=== PATIENT | female | born 1935 | race Caucasian/White ===

== ENCOUNTER 2017-04-05 09:35 | Observation (INO) | payer MEDICARE, OTHER ==
--- NOTE | 2017-04-05 11:23 | RAD ---
HISTORY: Shortness of breath, cough COMPARISONS: April 29, 2007 VIEWS: 4: Frontal dual-energy and lateral views of the chest. FINDINGS: CARDIOMEDIASTINAL SILHOUETTE: The cardiac silhouette is mildly enlarged. The cardiomediastinal silhouette is otherwise normal. HARPER: The harper are normal. PLEURA: The costophrenic angles are sharp. No pleural abnormalities are noted. LUNG PARENCHYMA: There is patchy alveolar opacification lung bases bilaterally. ABDOMEN: The upper abdomen is clear. There is no subphrenic gas. BONES AND SOFT TISSUES: No bone or soft tissue abnormalities are noted. OTHER: None. IMPRESSION: PATCHY BIBASILAR ATELECTASIS VERSUS EARLY CONSOLIDATION
[2017-04-05 11:31] LABS: Hematocrit 39 % (35-47); Hemoglobin 13.7 g/dl (12.0-16.0); Mean Corpuscular HGB Conc 35 g/dl (31-36); Mean Corpuscular Hemoglobin 33 pg (27-31); Mean Corpuscular Volume 94 fL (80-97); Mean Platelet Volume 8 um3 (7.4-10.4); Red Blood Count 4.19 10^6/ul (4.0-5.4); Red Cell Distribution Width 14 % (10.5-15); White Blood Count 6.1 10^3/ul (3.5-10.8)
[2017-04-05 11:43] LABS: Troponin I 0.01 ng/mL (<0.04)
[2017-04-05 11:45] LABS: Albumin 4.6 g/dL (3.2-5.2); BUN/Creatinine Ratio 14.6 (8-20); EGFR African American 85.6 (>60); EGFR Non-African American 66.6 (>60); Total Bilirubin 0.8 mg/dL (0.2-1.0); Total Protein 6.6 g/dL (6.4-8.9)
[2017-04-05] MEDS ORDERED: Furosemide IV* 10 MG/ML VIAL (40 MG) IV ONE (12:16)
[2017-04-05] MEDS ORDERED: Carvedilol TAB* 3.125 MG PO SCH (14:13)
[2017-04-05] MEDS ORDERED: Ondansetron INJ* 2 MG/ML VIAL IV PRN (14:18)
[2017-04-05] MEDS ORDERED: Acetaminophen TAB* 325 MG PO PRN (14:18)
[2017-04-05 14:34] LABS: C Reactive Protein 2.65 mg/L (< 5.00); Magnesium 2.1 mg/dL (1.9-2.7)
[2017-04-05 15:07] LABS: TSH (Thyroid Stimulating Horm) 3.91 mcIU/mL (0.34-5.60)
[2017-04-05] MEDS ORDERED: Perflutren Lipid Microsphere* 3 ML VIAL ONE (16:32)
--- NOTE | 2017-04-05 17:13 | HP ---
CC: Alvaro Marks MD * HISTORY AND PHYSICAL: DATE OF ADMISSION: 04/05/17 ATTENDING PHYSICIAN: Hitesh Matute MD * (as dictated by Rylee Gomez NP) . PRIMARY CARE PROVIDER: Alvaro Marks MD. PRIMARY INVESTIGATIONS DIRECTOR: Dr. Alba. CHIEF COMPLAINT: "Haven't been able to sleep x3 days." HISTORY OF PRESENT ILLNESS: Ms. Yin is an 81-year-old female with past medical history significant for cardiomyopathy of unknown etiology, anxiety disorder, hypothyroidism and paroxysmal SVT, who presented to the ER today with concern for inability to sleep for the past 3 nights. She states that when she lies down, she feels like she cannot breathe. She has difficulty propping herself up at night because of her chronic neck and back pain. She notes that she has been more short of breath since last week. She still takes daily walks , but notes that she fatigues more easily. She also reports some chest tightness as well as palpitations and a few near syncopal events. She denies any recent fever, chills, cold or flu symptoms, although she does note she has a nonproductive cough. She also reports that she has noted some bilateral flank pain recently, but denies this now. Here in the ED, the patient received IV furosemide and reports that her breathing feels better. She is speaking in full sentences. She is able to lie flat in the ED stretcher and appears to be more comfortable. PAST MEDICAL HISTORY: Includes: 1. Cardiomyopathy of unknown etiology with the last echo in 2014 showing an EF of 30% to 35%. 2. Anxiety disorder. 3. History of left breast cancer. 4. Hypothyroidism. 5. Paroxysmal SVT. 6. Osteoarthritis. 7. Tricuspid valve disorder. 8. Mitral valve disorder. PAST SURGICAL HISTORY: Includes left breast mastectomy, bilateral total knee replacements, tonsillectomies, numerous basal cell skin cancers status post removal, wisdom teeth removal, cataract removal, treatment of deviated septum with a treatment for vulvar dysplasia and back surgery. HOME MEDICATIONS: 1. Levothyroxine 75 mcg daily. 2. Estradiol 10 mcg vaginally twice a week. 3. Citalopram 20 mg daily. 4. Aspirin 81 mg daily. ALLERGIES: Include CODEINE, PENICILLIN, and SULFA drugs. FAMILY HISTORY: Includes a history of skin cancer, but she denies any known cardiac history in her family. SOCIAL HISTORY: She denies any tobacco, alcohol or illicit drug use. She lives by herself. Her daughter, , is her healthcare proxy. REVIEW OF SYSTEMS: As per HPI, all those not mentioned are negative. PHYSICAL EXAMINATION GENERAL: This is a well-developed 81-year-old female who is lying in ED stretcher in no acute distress. VITAL SIGNS: Temperature 98.0, heart rate 112, respiratory rate 20, blood pressure 132/86, and O2 saturation is 94% on 3 L nasal cannula. HEENT: Head is atraumatic, normocephalic. Face is symmetrical. Pupils are equal, round, and reactive to light. Extraocular movements are intact. Oral mucosa appears moist. There is no oropharyngeal exudate or erythema. NECK: Supple. No JVD noted. No lymphadenopathy appreciated. LUNGS: Clear to auscultation, though there are mild crackles noted in the bases bilaterally. CARDIAC: S1 and S2 heart sounds. Rate is tachycardic. Could not appreciate any murmurs. ABDOMEN: Soft, nontender, and nondistended. Bowel sounds present times all 4 quadrants. There is no CVA tenderness. EXTREMITIES: The patient has pretibial pitting edema that is 1+ to the bilateral lower extremities. Distal pulses are symmetric and equal. MUSCULOSKELETAL: No clubbing or cyanosis noted. The patient has full range of motion in the extremities. NEURO: She is alert and oriented x4. Cranial nerves II through XII are grossly intact. Strength is 5/5 in the upper and lower extremities. No focal deficits noted. Sensation is intact to light touch. PSYCH: The patient's affect is appropriate. Again, she is alert and oriented x4. SKIN: The patient has noted areas to the bilateral lower extremities where basal skin cancer removals have occurred. They are healing with no surrounding erythema or drainage, otherwise skin is warm and dry. DIAGNOSTIC STUDIES/LAB DATA: CBC: WBC 6.1, hemoglobin 13.7, hematocrit 39, platelet count 182,000. CMP: Sodium 130, potassium 4.0, chloride 99, carbon dioxide 21, BUN 12, creatinine 0.82, glucose 75, lactic acid 1.5, calcium 10. AST 41, ALT 59, alk phos 54, troponin 0.01, BNP is 1719, albumin 4.6. TSH pending. The patient's chest x-ray shows concern for vascular congestion and is read as patchy bibasilar atelectasis versus early consolidation. Her EKG shows sinus rhythm with poor R-wave progression. Old medical records were reviewed. ASSESSMENT AND PLAN: This is an 81-year-old female who presents today with concern for exacerbation of congestive heart failure. She will be admitted under observation status to the telemetry floor. Plan is as follows: 1. Congestive heart failure with known cardiomyopathy. At this point in time, the patient appears to be improved following the IV furosemide that she has received. We will obtain echocardiogram and will contact Cardiology to notify Dr. Alba of the patient' admission. From the patient's interview, she states that she was previously on 3 different medications in the past for her cardiomyopathy, but did not tolerate them at home secondary to low blood pressure. I did find a few notes in [facility] that indicate the patient was previously on lisinopril, which she states she definitely did not tolerate, as well as Aldactone and carvedilol. Given the patient's tachycardia as well as her suspected heart failure, I will like to start her on back on carvedilol and will start her on 3.125 mg b.i.d. to see how she tolerates this. I do not note that her blood pressures here are normotensive, but somewhat on the soft side here in the ER, so we will watch this very closely. She did receive one dose of IV furosemide with good effect and I will hold off on further IV diuresis today at this time given that the patient has good renal function. At baseline , she states her weight is around 150 pounds and here in the ER it is noted to be 146 pounds. 2. Hyponatremia. The patient's sodium is 130, which I suspect is secondary to fluid overload. We will repeat a BMP tomorrow. 3. History of anxiety disorder. Continue home citalopram. 4. History of hypothyroidism. TSH is pending, but we will continue home levothyroxine at current dose at this time. 5. History of paroxysmal supraventricular tachycardia, currently not an issue. We will be starting the patient on a low dose beta cinthia. 6. FEN. The patient will be ordered a low sodium diet. 7. DVT prophylaxis. She is ordered subcu heparin and SCDs. 8. Code status. The patient looks to be a DNR and trial intubation and MOLST form was completed with the patient. 9. For her bilateral flank pain, plan to check a urinalysis. TIME SPENT: Time spent on this admission was approximately 60 minutes, more than half the time was spent [id number] with the patient obtaining history and physical, performing physical examination, reviewing the plan of care. Plan of care was also reviewed with my attending, Dr. Matute, who is in agreement. RYLEE GOMEZ, LICENSED NURSE PRACTITIONER [id number]/CPS #: [id number] BRENNAN
--- NOTE | 2017-04-05 17:54 | ECHO ---
Patient: RENA GUY Rec#: [id number] : 1935 Date: 04/05/2017 Age: 81y Height: 172.7 cm / 68.0 in Weight: 66.2 kg / 145.9 lbs Sex: F BSA: 1.79 Room#: 434 Admit Date#: 04/05/2017 Type: Inpatient Referring: Cris Bernla Reading: Dimitrios Melendez MD Conflict Resolution Professional: Lydia Juarez RN RDCS CC: Silvano Alba MD CC: Alvaro Marks MD Transthoracic Echocardiogram Indication: CHF, cardiomyopathy, SOB BP: 115/99 HR: 122 Rhythm: Tachycardia Findings History: Cardiomyopathy, CHF, mitral regurgitation, left breast cancer, hypothyroidism Technical Comments: The study quality is fair. Completed at 1720. Left Ventricle: The left ventricular chamber size is mildly dilated. There is global hypokinesis of the left ventricle with minor regional variation. There is severely decreased left ventricular systolic function. The estimated ejection fraction is 20-25%. In some of the views at appears less than 20%. The assessment of diastolic function is non-diagnostic. The patient was unable to perform a Valsalva maneuver. Left Atrium: The left atrium is mild to moderately dilated. Right Ventricle: The right ventricular cavity size is normal. The right ventricular global systolic function is mildly reduced. Right Atrium: The right atrial cavity size is normal. Aortic Valve: The aortic valve is trileaflet. The aortic valve leaflets are mildly thickened. There is a trace of aortic regurgitation. There is no evidence of aortic stenosis. Mitral Valve: The mitral valve leaflets are mildly thickened. There is moderate to severe mitral regurgitation. Probably severe. There is no evidence of mitral stenosis. Pulmonary vein flow reversal is present. Tricuspid Valve: The tricuspid valve leaflets are normal. There is moderate tricuspid regurgitation. There is evidence of moderate pulmonary hypertension. There is no tricuspid stenosis. Pulmonic Valve: The pulmonic valve appears normal. There is mild pulmonic regurgitation. There is no pulmonic stenosis. Pericardium: A trivial pericardial effusion is visualized. A pericardial fat pad is visualized. A left pleural effusion is present. Aorta: There is no dilatation of the ascending aorta. There is no dilatation of the aortic arch. There is no dilation of the aortic root. Pulmonary Artery: The main pulmonary artery appears normal. Venous: The inferior vena cava appears normal in size. There is an approximate 50% respiratory change in the inferior vena cava dimension. Contrast: Definity was used to optimize study. A total of 3 ml of Definity was given IV to enhance visualization of the endocardial border and the apex. Summary: There are changes noted when compared to the previous study done on 08/17/2014, LV EF appears less now from 30-35% then. MR is more severe now instead of mild-moderate then.TR is now moderate instead of mild then. PHTN is new now. Conclusions The left ventricular chamber size is mildly dilated. There is global hypokinesis of the left ventricle with minor regional variation. There is severely decreased left ventricular systolic function. The estimated ejection fraction is 20-25%. In some of the views at appears less than 20%. The assessment of diastolic function is non-diagnostic. The left atrium is mild to moderately dilated. There is a trace of aortic regurgitation. There is moderate to severe mitral regurgitation. Probably severe. There is moderate tricuspid regurgitation. There is evidence of moderate pulmonary hypertension. There is mild pulmonic regurgitation. A trivial pericardial effusion is visualized. There are changes noted when compared to the previous study done on 08/17/2014, LV EF appears less now from 30-35% then. MR is more severe now instead of mild-moderate then.TR is now moderate instead of mild then. PHTN is new now. Measurements Name Value Normal Range RVIDd (AP) 2D 2.7 cm (0.9 - 2.6) RVDdMajor (2D) 3.4 cm (2.2 - 4.4) RAd ISD 4CH 4.7 cm (3.4 - 4.9) RA (A4C)W 4.1 cm (2.9 - 4.6) IVSd (2D) 0.7 cm (0.6 - 1) LVPWd (2D) 0.8 cm (0.6 - 1) LVIDd (2D) 6 cm (3.6 - 5.4) LVIDs (2D) 5.4 cm - LV FS (2D) 10 % (25 - 45) Aortic Annulus 1.7 cm (1.4 - 2.6) Ao root diameter (2D) 2.7 cm (2.1 - 3.5) Ascending Ao 2.9 cm (2.1 - 3.4) Aortic arch 2.7 cm (1.8 - 3.4) LA dimension (AP) 2D 4.9 cm (2.3 - 3.8) LAd ISD 4CH 5.9 cm (2.9 - 5.3) LA ISD 4CH W 4.5 cm (2.5 - 4.5) Name Value Normal Range LA ESV SP 4CH (A/L) 59 ml - LA ESV SP 2CH (A/L) 76 ml - LA ESV BP (A/L) 68 ml - LA ESV BP (A/L) index 38 ml/m2 - LA ESV SP 4CH (MOD) 57 ml - LA ESV SP 2CH (MOD) 74 ml - Name Value Normal Range MV E-wave Vmax 1.3 m/sec - MV deceleration time 155 msec - MV A-wave Vmax 0.81 m/sec - MV E:A ratio 1.6 ratio - LV septal e' Vmax 0.06 m/sec - LV lateral e' Vmax 0.05 m/sec - LV E:e' septal ratio 21.7 ratio - LV E:e' lateral ratio 26 ratio - Name Value Normal Range AV Vmax 1.1 m/sec - AV VTI 16 cm - AV peak gradient 5 mmHg - AV mean gradient 3 mmHg - LVOT Vmax 0.75 m/sec - LVOT VTI 9.8 cm - LVOT peak gradient 2.3 mmHg - LVOT mean gradient 1.3 mmHg - Name Value Normal Range MV Vmax 1.6 m/sec - MV VTI 22 cm - MV peak gradient 10.24 mmHg - MV mean gradient 4 mmHg - MV PHT 47 msec - MR Vmax 5.3 m/sec - MR VTI 137.7 cm - MR volume (PISA) 34.4 ml - MR flow (PISA) 132.3 ml/sec - MR ERO 0.25 cm2 - MR PISA radius 0.7 cm - MR alias Vmax 43 cm/sec - MVA (PHT) 4.7 cm2 - Name Value Normal Range TR Vmax 3.2 m/sec - TR peak gradient 41 mmHg - RAP 8 mmHg - RVSP 49 mmHg - IVC diameter 1.7 cm - Name Value Normal Range PV Vmax 0.49 m/sec -
--- NOTE | 2017-04-05 19:10 | ED ---
Azeb Freeman SooYoung, scribed for Ze Hughes MD on 04/05/17 at 1015 . Shortness of Breath - HPI Summary HPI Summary: An 81 y/o F presents to ED with c/o SOB at baseline but has been worsening this AM, occurring with minimal exertion and when lying down. Pert PMHx: CHF. Associated sx: mild cough. Denies pedal edema, fever, chills. She wasn't able to sleep last night. She takes daily aspirin. Non-smoker. No ETOH. Not taking a water pill, not taking medication for CHF. PCP is Dr. Marks. Sees Dr. Alba, cardio. - History of Current Complaint Chief Complaint: EDGeneral Time Seen by Provider: 04/05/17 10:06 Hx Obtained From: Patient, Family/[employer]ak[employer] Worker [employer] Line Onset/Duration: Lasting Hours, Still Present Timing: Constant Current Severity: Mild Dyspnea At: Exertion - minimal Aggrevating Factors: Recumbent Position - Allergy/Home Medications Allergies/Adverse Reactions: Allergies Allergy/AdvReac Type Severity Reaction Status Date / Time Codeine Allergy Rash Verified 04/05/17 10:04 Penicillins Allergy Rash Verified 04/05/17 10:04 Sulfa Drugs Allergy Rash Uncoded 04/05/17 10:04 PMH/Surg Hx/FS Hx/Imm Hx Previously Healthy: No Endocrine/Hematology History: Reports: Hx Thyroid Disease - ON MEDS Denies: Hx Diabetes Cardiovascular History: Reports: Hx Congestive Heart Failure, Hx Valvular Heart Disease - MITRAL VALVE, Other Cardiovascular Problems/Disorders - HX HEART FAILURE Denies: Hx Hypertension Respiratory History: Denies: Hx Asthma, Hx Chronic Obstructive Pulmonary Disease (COPD), Other Respiratory Problems/Disorders GI History: Denies: Hx Ulcer, Other GI Disorders Musculoskeletal History: Denies: Other Musculoskeletal History Sensory History: Reports: Hx Cataracts - JACK, Hx Contacts or Glasses - GLASSES Denies: Hx Hearing Aid Opthamlomology History: Reports: Hx Cataracts - JACK, Hx Contacts or Glasses - GLASSES Neurological History: Denies: Other Neuro Impairments/Disorders Psychiatric History: Reports: Hx Anxiety - ON MEDS - Cancer History Cancer Type, Location and Year: skin cancer, breast cancer - Surgical History Surgery Procedure, Year, and Place: tonsillectomy, tumor removed from breast benign,AGE 18 nose deviated septum, back surgery for ruptured disc bilateral knee replacements, L mastectomy 2008, laser surgery on labia. Hx Anesthesia Reactions: No Infectious Disease History: No Infectious Disease History: Denies: Hx Hepatitis, Hx Human Immunodeficiency Virus (HIV), History Other Infectious Disease, Traveled Outside the [place] in Last 30 Days - Family History Known Family History: Negative: Other - neg: anaesthesia reaction - Social History Occupation: Retired Lives: Alone Alcohol Use: None Hx Substance Use: No Substance Use Type: Reports: None Hx Tobacco Use: No Smoking Status (MU): Never Smoked Tobacco Review of Systems Negative: Fever, Chills Positive: Shortness Of Breath, Cough Positive: dysuria Negative: Edema - LE All Other Systems Reviewed And Are Negative: Yes Physical Exam - Summary Physical Exam Summary: The patient is well-nourished in no acute distress and in no acute pain. The skin is warm and dry and skin color reflects adequate perfusion. HEENT: The head is normocephalic and atraumatic. The pupils are equal and reactive. The conjunctivae are clear and without drainage. Nares are patent and without drainage. Mouth reveals dry oral mucous membranes and the throat is without erythema and exudate. The external ears are intact. The ear canals are patent and without drainage. The tympanic membranes are intact. Neck is supple with full range of motion and non-tender. There are no carotid bruits. There is no neck vein distension. Respiratory: Chest is non-tender. Lungs are clear to auscultation and breath sounds are symmetrical and equal. Mildly diminished breath sounds, no rales, rhonchi or wheezing. Cardiovascular: Heart is regular rhythm and tachy. There is no murmur or rub auscultated. There is pitting edema in LE. Distal pulses are symmetrical and equal. Abdomen: The abdomen is soft and non-tender. There are normal bowel sounds heard in all four quadrants and there is no organomegaly palpated. Musculoskeletal: There is no back pain noted. Extremities are non-tender with full range of motion. There is good capillary refill. There is pitting edema in LE. No calf tenderness elicited. Neurological: Patient is alert and oriented to person, place and time. The patient has symmetrical motor strength in all four extremities. Cranial nerves are grossly intact. Deep tendon reflexes are symmetrical and equal in all four extremities. Psychiatric: The patient has an appropriate affect and does not exhibit any anxiety or depression. Vital Signs On Initial Exam: Initial Vitals Temp Pulse Resp BP Pulse Ox 98.0 F 48 18 126/93 100 04/05/17 09:39 04/05/17 09:39 04/05/17 09:39 04/05/17 09:39 04/05/17 09:39 - Jena Coma Scale Coma Scale Total: 15 Diagnostics - Vital Signs Vital Signs Temp Pulse Resp BP Pulse Ox 04/05/17 10:02 98 F 92 16 118/82 95 04/05/17 09:39 98.0 F 48 18 126/93 100 - Laboratory Lab Results: Lab Results 04/05/17 04/05/17 04/05/17 Range/Units 11:06 11:06 11:06 WBC 6.1 (3.5-10.8) 10^3/ul RBC 4.19 (4.0-5.4) 10^6/ul Hgb 13.7 (12.0-16.0) g/dl Hct 39 (35-47) % MCV 94 (80-97) fL MCH 33 H (27-31) pg MCHC 35 (31-36) g/dl RDW 14 (10.5-15) % Plt Count 182 (150-450) 10^3/ul MPV 8 (7.4-10.4) um3 Neut % (Auto) 77.7 (38-83) % Lymph % (Auto) 13.4 L (25-47) % Foard % (Auto) 7.0 (1-9) % Eos % (Auto) 1.1 (0-6) % Baso % (Auto) 0.8 (0-2) % Absolute Neuts (auto) 4.8 (1.5-7.7) 10^3/ul Absolute Lymphs (auto) 0.8 L (1.0-4.8) 10^3/ul Absolute Monos (auto) 0.4 (0-0.8) 10^3/ul Absolute Eos (auto) 0.1 (0-0.6) 10^3/ul Absolute Basos (auto) 0 (0-0.2) 10^3/ul Absolute Nucleated RBC 0.01 10^3/ul Nucleated RBC % 0.1 INR (Anticoag Therapy) 0.99 (0.89-1.11) Sodium (133-145) mmol/L Potassium (3.5-5.0) mmol/L Chloride (101-111) mmol/L Carbon Dioxide (22-32) mmol/L Anion Gap (2-11) mmol/L BUN (6-24) mg/dL Creatinine (0.51-0.95) mg/dL Est GFR ( Amer) (>60) Est GFR (Non-Af Amer) (>60) BUN/Creatinine Ratio (8-20) Glucose (70-100) mg/dL Lactic Acid (0.5-2.0) mmol/L Calcium (8.6-10.3) mg/dL Magnesium (1.9-2.7) mg/dL Total Bilirubin (0.2-1.0) mg/dL AST (13-39) U/L ALT (7-52) U/L Alkaline Phosphatase (34-104) U/L Troponin I (<0.04) ng/mL C-Reactive Protein (< 5.00) mg/L B-Natriuretic Peptide 1719 H ( - 100) pg/mL Total Protein (6.4-8.9) g/dL Albumin (3.2-5.2) g/dL Globulin (2-4) g/dL Albumin/Globulin Ratio (1-3) TSH (0.34-5.60) mcIU/mL 04/05/17 04/05/17 Range/Units 11:06 11:06 WBC (3.5-10.8) 10^3/ul RBC (4.0-5.4) 10^6/ul Hgb (12.0-16.0) g/dl Hct (35-47) % MCV (80-97) fL MCH (27-31) pg MCHC (31-36) g/dl RDW (10.5-15) % Plt Count (150-450) 10^3/ul MPV (7.4-10.4) um3 Neut % (Auto) (38-83) % Lymph % (Auto) (25-47) % Foard % (Auto) (1-9) % Eos % (Auto) (0-6) % Baso % (Auto) (0-2) % Absolute Neuts (auto) (1.5-7.7) 10^3/ul Absolute Lymphs (auto) (1.0-4.8) 10^3/ul Absolute Monos (auto) (0-0.8) 10^3/ul Absolute Eos (auto) (0-0.6) 10^3/ul Absolute Basos (auto) (0-0.2) 10^3/ul Absolute Nucleated RBC 10^3/ul Nucleated RBC % INR (Anticoag Therapy) (0.89-1.11) Sodium 130 L (133-145) mmol/L Potassium 4.0 (3.5-5.0) mmol/L Chloride 99 L (101-111) mmol/L Carbon Dioxide 21 L (22-32) mmol/L Anion Gap 10 (2-11) mmol/L BUN 12 (6-24) mg/dL Creatinine 0.82 (0.51-0.95) mg/dL Est GFR ( Amer) 85.6 (>60) Est GFR (Non-Af Amer) 66.6 (>60) BUN/Creatinine Ratio 14.6 (8-20) Glucose 95 (70-100) mg/dL Lactic Acid 1.5 (0.5-2.0) mmol/L Calcium 10.0 (8.6-10.3) mg/dL Magnesium 2.1 (1.9-2.7) mg/dL Total Bilirubin 0.80 (0.2-1.0) mg/dL AST 41 H (13-39) U/L ALT 59 H (7-52) U/L Alkaline Phosphatase 54 (34-104) U/L Troponin I 0.01 (<0.04) ng/mL C-Reactive Protein 2.65 (< 5.00) mg/L B-Natriuretic Peptide ( - 100) pg/mL Total Protein 6.6 (6.4-8.9) g/dL Albumin 4.6 (3.2-5.2) g/dL Globulin 2.0 (2-4) g/dL Albumin/Globulin Ratio 2.3 (1-3) TSH 3.91 (0.34-5.60) mcIU/mL Result Diagrams: 04/05/17 11:06 04/05/17 11:06 Lab Statement: Any lab studies that have been ordered have been reviewed, and results considered in the medical decision making process. - Radiology CXR Xray Interpretation: Positive (See Comments) - IMPRESSION: PATCHY BIBASILAR ATELECTASIS VERSUS EARLY CONSOLIDATION. ED physician has reviewed this radiology report and agrees. Radiology Interpretation Completed By: Radiologist - EKG 0947 Cardiac Rate: NL - 92bpm EKG Rhythm: Sinus Rhythm ST Segment: Non-Specific EKG Interpretation: nml axis, poor R-wave progression, probable LVH Re-Evaluation - Re-Evaluation 1 Re-Evaluation Time: 12:12 Change: Unchanged Comment: Discussing results with pt and family. They prefer not to be admitted, would like to be given a diuretic and D/C home with water pills. Agreeable to plan. Course/Dx - Course Course Of Treatment: An 81 y/o F presents to ED with c/o SOB at baseline but has been worsening this AM, occurring with minimal exertion and when lying down. Pert PMHx: CHF. Associated sx: mild cough. Denies pedal edema, fever, chills. She wasn't able to sleep last night. She takes daily aspirin. Non- smoker. No ETOH. Not taking a water pill, not taking medication for CHF. PCP is Dr. Marks. Sees Dr. Alba, cardio. Bloodwork is without significant abnormality except BNP 1719. EKG shows NSR with poor R-wave progression and probably LVH. CXR shows PATCHY BIBASILAR ATELECTASIS VERSUS EARLY CONSOLIDATION. Pt given Lasix in ED. Per nurse, pt has changed her mind about being admitted. Will consult with hospitalist. Discussed pt with Dr. Matute, hospitalist, will admit. - Diagnoses Differential Diagnosis/HQI/PQRI: Positive: CHF, MO, Pneumonia, Pulmonary Edema Provider Diagnoses: Acute dyspnea, CHF (congestive heart failure), Cardiomyopathy - Physician Notifications Discussed Care of Patient With: Dimitrios Melendez - cardio Time Discussed With Above Provider: 13:01 Instructed by Provider To: Other - Discussed that pt has non-ischemic cardiomyopathy, last ejection fracture was 35% in 2014 on echo; he will contact Dr. Alba who is pt's registered dietician. - Critical Care Time Critical Care Time: 30-74 min - 30 minutes Discharge - Discharge Plan Condition: Stable Disposition: ADMITTED TO [facility] Consult Consult: 1312: Dr. Matute, hospitalist Will admit pt. The documentation as recorded by the Azeb bonilla,SooYoung accurately reflects the service I personally performed and the decisions made by me, Ze Hughes MD.
[2017-04-05] MEDS: Carvedilol TAB* 3.125 MG PO SCH (21:18)
[2017-04-05] MEDS: Heparin VIAL(*) 5000 UNITS/ML VIAL (FIVE THOUSAND) SUBCUT SCH (21:47)
[2017-04-05 23:26] LABS: Urine Bacteria Absent (Absent); Urine Bilirubin Negative (Negative); Urine Glucose Negative (Negative); Urine Nitrite Negative (Negative)
[2017-04-06 05:39] LABS: Hematocrit 37 % (35-47); Hemoglobin 12.9 g/dl (12.0-16.0); Mean Corpuscular HGB Conc 34 g/dl (31-36); Mean Corpuscular Hemoglobin 32 pg (27-31); Mean Corpuscular Volume 93 fL (80-97); Mean Platelet Volume 9 um3 (7.4-10.4); Red Blood Count 4.03 10^6/ul (4.0-5.4); Red Cell Distribution Width 13 % (10.5-15); White Blood Count 5.1 10^3/ul (3.5-10.8)
[2017-04-06 05:54] LABS: BUN/Creatinine Ratio 17.3 (8-20); Calcium 9.4 mg/dL (8.6-10.3); EGFR African American 86.8 (>60); EGFR Non-African American 67.5 (>60); Potassium 3.5 mmol/L (3.5-5.0)
[2017-04-06] MEDS ORDERED: Levothyroxine TAB* 75 MCG TAB PO SCH (06:00)
[2017-04-06] MEDS: Heparin VIAL(*) 5000 UNITS/ML VIAL (FIVE THOUSAND) SUBCUT SCH (06:13)
[2017-04-06] MEDS: Carvedilol TAB* 3.125 MG PO SCH (08:16)
[2017-04-06] MEDS ORDERED: Aspirin EC Low Dose* 81 MG TAB.EC PO SCH (09:00)
[2017-04-06] MEDS ORDERED: Furosemide IV* 10 MG/ML VIAL (40 MG) IV SLOW PU ONE (09:00)
[2017-04-06] MEDS ORDERED: Citalopram TAB* 20 MG PO SCH (09:00)
[2017-04-06 11:29] VITALS: BP 100/66
--- NOTE | 2017-04-07 05:30 | DS ---
CC: Dr. Marks; Dr. Alba DISCHARGE SUMMARY: DATE OF ADMISSION: DATE OF DISCHARGE: 04/06/17 HISTORY: This 81-year-old woman presented to us complaining she could not sleep in 3 days and felt terrible. She said she had orthopnea. When I spoke to her on the day of discharge, she denied having orthopnea. She said she was short of breath when she lay down or stood up or walked. She said she uses 1 pillow to prop up her head in the bed. She received 40 mg of furosemide IV in the emergency room. Her urine output was 1925 mL that day. She said she felt much better after that. Carvedilol was also added to her regimen. I note in the past she has complained that most cardiac medications lower her blood pressure and make her dizzy and she has refused to take them. The patient said she does her own cooking and likes to use salt and did not seem motivated to change that. I advised her to use less salt. I instructed her to weigh herself every day, to write down the weights and if her weight changed, went up or down by more than 3 pounds in any week, to call Dr. Alba or Dr. Marks. FINAL DIAGNOSES: 1. Cardiomyopathy with ejection fraction 20% to 25%. 2. Hypothyroidism. DISCHARGE MEDICATIONS: 1. Carvedilol 3.125 mg b.i.d. 2. Furosemide 20 mg daily. 3. Levothyroxine 75 mcg daily. 4. Aspirin 81 mg daily. 5. Estradiol vaginal tablet 10 mcg twice weekly. 6. Citalopram 20 mg daily. The patient will have a BMP in 4 days. [id number]/[facility] #: [id number] [facility]
[2017-04-07] MEDS ORDERED: Furosemide TAB* 20 MG PO SCH (09:00)
== END 2017-04-06 14:13 | disposition home or self-care (01) ==
LOC: ED 09:35 → MEDTELE 13:17
PROVIDERS: ADMIT Internal Medicine; ATTEND Internal Medicine
DX: I42.9 Cardiomyopathy, unspecified (principal); I50.9 Heart failure, unspecified; E03.9 Hypothyroidism, unspecified; I47.1 Supraventricular tachycardia; R07.9 Chest pain, unspecified; F41.9 Anxiety disorder, unspecified; I36.8 Other nonrheumatic tricuspid valve disorders; I34.8 Other nonrheumatic mitral valve disorders; I51.7 Cardiomegaly; Z79.899 Other long term (current) drug therapy; Z88.0 Allergy status to penicillin; Z88.2 Allergy status to sulfonamides; Z88.5 Allergy status to narcotic agent; Z79.82 Long term (current) use of aspirin; E87.1 Hypo-osmolality and hyponatremia
CPT/HCPCS: 36415; 71020; 80048; 80053; 81003; 81015; 83605; 83735; 83880; 84443; 84484; 85025; 85610; 86140; 87086; 93005; 93306; 96372; 96374; 99291; A9270-GY; C8929; G0378; J1644; J1940

== ENCOUNTER 2017-04-07 14:25 | Inpatient (IN) | payer MEDICARE, OTHER ==
[2017-04-07 15:59] LABS: Hematocrit 36 % (35-47); Hemoglobin 12.9 g/dl (12.0-16.0); Mean Corpuscular HGB Conc 36 g/dl (31-36); Mean Corpuscular Hemoglobin 32 pg (27-31); Mean Corpuscular Volume 91 fL (80-97); Mean Platelet Volume 9 um3 (7.4-10.4); Red Cell Distribution Width 14 % (10.5-15); White Blood Count 7.1 10^3/ul (3.5-10.8)
[2017-04-07 16:01] LABS: ALT 77 U/L (7-52); Albumin 4.4 g/dL (3.2-5.2); Alkaline Phosphatase 53 U/L (34-104); BUN/Creatinine Ratio 19.5 (8-20); Blood Urea Nitrogen 16 mg/dL (6-24); C Reactive Protein 2.51 mg/L (< 5.00); CO2 Carbon Dioxide 23 mmol/L (22-32); Calcium 9.1 mg/dL (8.6-10.3); Chloride 85 mmol/L (101-111); EGFR African American 85.6 (>60); EGFR Non-African American 66.6 (>60); Globulin 2.3 g/dL (2-4); Glucose 143 mg/dL (70-100); Total Protein 6.7 g/dL (6.4-8.9)
[2017-04-07 16:02] LABS: Troponin I 0.02 ng/mL (<0.04)
[2017-04-07 16:39] LABS: Anion Gap 9 mmol/L (2-11); Sodium 117 mmol/L (133-145)
[2017-04-07] MEDS ORDERED: Ketorolac INJ* 30 MG/ML 1 ML VIAL IV ONE (17:11)
--- NOTE | 2017-04-07 18:02 | ADMNOTE ---
Subjective Date of Service: 04/07/17 Interval History: ADMISSION HISTORY AND PHYSICAL EXAM: Allergies Allergy/AdvReac Type Severity Reaction Status Date / Time Codeine Allergy Rash Verified 04/05/17 10:04 Penicillins Allergy Rash Verified 04/05/17 10:04 Sulfa Antibiotics Allergy Rash Verified 04/06/17 08:34 Home Medications Medication Instructions Recorded Confirmed Type Aspirin EC Low Dose* [Ecotrin EC 81 mg PO DAILY 04/05/17 04/05/17 History Low Dose 81 MG*] Citalopram TAB* [Celexa TAB*] 20 mg PO DAILY 04/05/17 04/05/17 History Estradiol VAGINAL TAB(NF) [Vagifem] 10 mcg VAGINAL .TWICE A WEEK 04/05/17 History Levothyroxine TAB* [Synthroid 75 75 mcg PO DAILY 04/05/17 04/05/17 History MCG TAB*] Carvedilol TAB* [Coreg TAB*] 3.125 mg PO BID WITH MEALS #60 tab 04/06/17 Rx Furosemide TAB* [Lasix TAB*] 20 mg PO DAILY #30 tab 04/06/17 Rx HPI: The patient went home yesterday from the hospital after dinner, weighed herself , and weighed herself in the AM. She keeps some water at her bedside and may have drank some. She now c/o SOB at rest and on walking. Fell in [place], has chronic neck and back pain but worse since her fall. Family History: Findings - Skin cancer Social History: Findings - Lives alone. No alcohol or tobacco use. Daughter Elle is her SDM. Past Medical History: Findings - L breast cancer. Cardiomyopathy, paroxysmalSVT. Hypothyroid Review of Systems - Measurements Intake and Output: Intake and Output Last 24 Hours 04/05/17 04/06/17 04/07/17 04/08/17 06:59 06:59 06:59 06:59 Weight 152 lb Objective Vital Signs 04/07/17 04/07/17 04/07/17 14:29 15:15 15:17 Temperature 97.8 F Pulse Rate 92 112 Respiratory 16 Rate Blood Pressure 116/73 117/86 (mmHg) O2 Sat by Pulse 93 95 Oximetry 04/07/17 04/07/17 04/07/17 15:30 16:00 16:16 Temperature Pulse Rate 100 107 100 Respiratory 20 20 22 Rate Blood Pressure 106/62 123/84 (mmHg) O2 Sat by Pulse 93 93 94 Oximetry 04/07/17 04/07/17 04/07/17 16:30 17:02 17:30 Temperature Pulse Rate 109 103 Respiratory 25 17 23 Rate Blood Pressure 123/92 115/70 (mmHg) O2 Sat by Pulse 97 95 Oximetry Oxygen Devices in Use Now: Nasal Cannula Appearance: Alert, partly up on ED stretcher. Somewhat restless. C/O neck pain and SOB. Neck: NL Appearance and Movements; NL JVP, No Thyroid Enlargement, Masses Respiratory: Symmetrical Chest Expansion and Respiratory Effort, - - Dull R base , decreased BS R base Cardiovascular: RRR, No Edema Abdominal: NL Sounds; No Tenderness; No Distention, No Hepatosplenomegaly, - Extremities: No Edema, No Clubbing, Cyanosis, - Skin: No Rash or Ulcers, No Nodules or Sclerosis, - Neurological: Alert and Oriented x 3, NL Sensation Result Diagrams: 04/07/17 15:15 04/07/17 17:25 Assess/Plan/Problems-Billing Assessment: - Patient Problems (1) Hyponatremia Current Visit: Yes Status: Acute Code(s): E87.1 - HYPO-OSMOLALITY AND HYPONATREMIA SNOMED Code(s): 28998583 Comment: ICU care for hypertonic saline, proceed cautiously due to low LVEF. IV fuorsemide 40 mg given in ED 04/07. (2) CHF (congestive heart failure) Current Visit: Yes Status: Acute Code(s): I50.9 - HEART FAILURE, UNSPECIFIED SNOMED Code(s): 85071813 Comment: Acute on chronic systolic CHF. Torsemide 40 mg po daily start . (3) Hypothyroid Current Visit: Yes Status: Acute Code(s): E03.9 - HYPOTHYROIDISM, UNSPECIFIED SNOMED Code(s): 74224553 Comment: TSH wnl 04/05/17. Continue home dose levothyroxine. (4) Neck pain Current Visit: Yes Status: Acute Code(s): M54.2 - CERVICALGIA SNOMED Code( s): 85819772 Comment: Schedule APAP ordered. Pt very opposed to taking any opiods.
[2017-04-07] MEDS ORDERED: Sodium Chloride 3% HYPERTONIC* 500 ML IVPB ONE (18:05)
[2017-04-07] MEDS ORDERED: Furosemide IV* 10 MG/ML VIAL (40 MG) IV ONE (18:06)
--- NOTE | 2017-04-07 18:31 | ED ---
Dominique Freeman Edward, scribed for Nimesh Rose MD on 04/07/17 at 1444 . Shortness of Breath - HPI Summary HPI Summary: 81 y/o female presents to the ED c/o increased SOB and retaining fluid in her lungs, first starting one week ago. Pt was seen in the ED yesterday and given a diuretic. The SOB became worse after she left the ED. The SOB is not alleviated or aggravated by anything. The pt also gained around 3 lbs overnight last night and was instructed to return to the ED if she did so. Associated sx: sleep disturbance secondary to SOB, intermittent bilateral flank pains, pain at the back of the neck and anxiety. - History of Current Complaint Chief Complaint: EDShortnessOfBreath Time Seen by Provider: 04/07/17 14:42 Hx Obtained From: Patient Onset/Duration: Lasting Weeks Aggrevating Factors: Nothing Alleviating Factors: Nothing - Allergy/Home Medications Allergies/Adverse Reactions: Allergies Allergy/AdvReac Type Severity Reaction Status Date / Time Codeine Allergy Rash Verified 04/05/17 10:04 Penicillins Allergy Rash Verified 04/05/17 10:04 Sulfa Antibiotics Allergy Rash Verified 04/06/17 08:34 PMH/Surg Hx/FS Hx/Imm Hx Previously Healthy: No Endocrine/Hematology History: Reports: Hx Thyroid Disease - ON MEDS Denies: Hx Diabetes Cardiovascular History: Reports: Hx Congestive Heart Failure, Hx Valvular Heart Disease - MITRAL VALVE, Other Cardiovascular Problems/Disorders - HX HEART FAILURE Denies: Hx Hypertension Respiratory History: Denies: Hx Asthma, Hx Chronic Obstructive Pulmonary Disease (COPD), Other Respiratory Problems/Disorders GI History: Denies: Hx Ulcer, Other GI Disorders Musculoskeletal History: Denies: Other Musculoskeletal History Sensory History: Reports: Hx Cataracts - JACK, Hx Contacts or Glasses - GLASSES Denies: Hx Hearing Aid Opthamlomology History: Reports: Hx Cataracts - JACK, Hx Contacts or Glasses - GLASSES Neurological History: Denies: Other Neuro Impairments/Disorders Psychiatric History: Reports: Hx Anxiety - ON MEDS - Cancer History Cancer Type, Location and Year: skin cancer, breast cancer - Surgical History Surgery Procedure, Year, and Place: tonsillectomy, tumor removed from breast benign,AGE 18 nose deviated septum, back surgery for ruptured disc bilateral knee replacements, L mastectomy 2007, laser surgery on labia. Hx Anesthesia Reactions: No Infectious Disease History: No Infectious Disease History: Denies: Hx Hepatitis, Hx Human Immunodeficiency Virus (HIV), History Other Infectious Disease, Traveled Outside the [place] in Last 30 Days - Family History Known Family History: Negative: Other - neg: anaesthesia reaction - Social History Alcohol Use: None Hx Substance Use: No Substance Use Type: Reports: None Hx Tobacco Use: No Smoking Status (MU): Never Smoked Tobacco Review of Systems Constitutional: Other - Gained 3 lbs overnight Eyes: Negative ENT: Negative Cardiovascular: Negative Positive: Shortness Of Breath, Other - Retaining fluid in lungs Gastrointestinal: Negative Positive: flank pain Positive: Arthralgia - Pain at the back of the neck Skin: Negative Neurological: Negative Psychological: Other - Sleep disturbance Positive: Anxious All Other Systems Reviewed And Are Negative: Yes Physical Exam Triage Information Reviewed: Yes Vital Signs On Initial Exam: Initial Vitals Temp Pulse Resp BP Pulse Ox 97.8 F 92 16 116/73 93 04/07/17 14:29 04/07/17 14:29 04/07/17 14:29 04/07/17 14:04/07/17 14:29 Vital Signs Reviewed: Yes Appearance: Positive: Well-Appearing, No Pain Distress Skin: Positive: Warm, Skin Color Reflects Adequate Perfusion, Dry Head/Face: Positive: Normal Head/Face Inspection Eyes: Positive: Normal ENT: Positive: Normal ENT inspection Neck: Positive: Supple, Nontender Respiratory/Lung Sounds: Positive: Clear to Auscultation, Breath Sounds Present Cardiovascular: Positive: RRR Abdomen Description: Positive: Nontender, Soft Bowel Sounds: Positive: Present Musculoskeletal: Positive: Normal Neurological: Positive: Normal Psychiatric: Positive: Normal, Affect/Mood Appropriate Diagnostics - Vital Signs Vital Signs Temp Pulse Resp BP Pulse Ox 04/07/17 14:29 97.8 F 92 16 116/73 93 - Laboratory Lab Results: Lab Results 04/07/17 04/07/17 04/07/17 Range/Units 15:15 15:15 15:15 WBC 7.1 (3.5-10.8) 10^3/ul RBC 4.00 (4.0-5.4) 10^6/ul Hgb 12.9 (12.0-16.0) g/dl Hct 36 (35-47) % MCV 91 (80-97) fL MCH 32 H (27-31) pg MCHC 36 (31-36) g/dl RDW 14 (10.5-15) % Plt Count 227 (150-450) 10^3/ul MPV 9 (7.4-10.4) um3 Neut % (Auto) 84.8 H (38-83) % Lymph % (Auto) 9.6 L (25-47) % [place] % (Auto) 4.9 (1-9) % Eos % (Auto) 0.5 (0-6) % Baso % (Auto) 0.2 (0-2) % Absolute Neuts (auto) 6.0 (1.5-7.7) 10^3/ul Absolute Lymphs (auto) 0.7 L (1.0-4.8) 10^3/ul Absolute Monos (auto) 0.4 (0-0.8) 10^3/ul Absolute Eos (auto) 0 (0-0.6) 10^3/ul Absolute Basos (auto) 0 (0-0.2) 10^3/ul Absolute Nucleated RBC 0.01 10^3/ul Nucleated RBC % 0.2 Sodium 117 L* D (133-145) mmol/L Potassium TNP Chloride 85 L (101-111) mmol/L Carbon Dioxide 23 (22-32) mmol/L Anion Gap 9 (2-11) mmol/L BUN 16 (6-24) mg/dL Creatinine 0.82 (0.51-0.95) mg/dL Est GFR ( Amer) 85.6 (>60) Est GFR (Non-Af Amer) 66.6 (>60) BUN/Creatinine Ratio 19.5 (8-20) Glucose 143 H (70-100) mg/dL Calcium 9.1 (8.6-10.3) mg/dL Total Bilirubin 1.10 H (0.2-1.0) mg/dL AST TNP ALT 77 H (7-52) U/L Alkaline Phosphatase 53 (34-104) U/L Troponin I 0.02 (<0.04) ng/mL C-Reactive Protein 2.51 (< 5.00) mg/L B-Natriuretic Peptide 1242 H ( - 100) pg/mL Total Protein 6.7 (6.4-8.9) g/dL Albumin 4.4 (3.2-5.2) g/dL Globulin 2.3 (2-4) g/dL Albumin/Globulin Ratio 1.9 (1-3) 04/07/17 Range/Units 17:25 WBC (3.5-10.8) 10^3/ul RBC (4.0-5.4) 10^6/ul Hgb (12.0-16.0) g/dl Hct (35-47) % MCV (80-97) fL MCH (27-31) pg MCHC (31-36) g/dl RDW (10.5-15) % Plt Count (150-450) 10^3/ul MPV (7.4-10.4) um3 Neut % (Auto) (38-83) % Lymph % (Auto) (25-47) % [place] % (Auto) (1-9) % Eos % (Auto) (0-6) % Baso % (Auto) (0-2) % Absolute Neuts (auto) (1.5-7.7) 10^3/ul Absolute Lymphs (auto) (1.0-4.8) 10^3/ul Absolute Monos (auto) (0-0.8) 10^3/ul Absolute Eos (auto) (0-0.6) 10^3/ul Absolute Basos (auto) (0-0.2) 10^3/ul Absolute Nucleated RBC 10^3/ul Nucleated RBC % Sodium 118 L* (133-145) mmol/L Potassium 4.0 Chloride (101-111) mmol/L Carbon Dioxide (22-32) mmol/L Anion Gap (2-11) mmol/L BUN (6-24) mg/dL Creatinine (0.51-0.95) mg/dL Est GFR ( Amer) (>60) Est GFR (Non-Af Amer) (>60) BUN/Creatinine Ratio (8-20) Glucose (70-100) mg/dL Calcium (8.6-10.3) mg/dL Total Bilirubin (0.2-1.0) mg/dL AST 55 H ALT (7-52) U/L Alkaline Phosphatase (34-104) U/L Troponin I (<0.04) ng/mL C-Reactive Protein (< 5.00) mg/L B-Natriuretic Peptide ( - 100) pg/mL Total Protein (6.4-8.9) g/dL Albumin (3.2-5.2) g/dL Globulin (2-4) g/dL Albumin/Globulin Ratio (1-3) Result Diagrams: 04/07/17 15:15 04/07/17 17:25 Lab Statement: Any lab studies that have been ordered have been reviewed, and results considered in the medical decision making process. - EKG 1 EKG Interpretation: 14:46 - SINUS TACHYCARDIA @ 101 BPM. LVH. Course/Dx - Course Course Of Treatment: Ms. Yin returned today after being D/C's yesterday. She was kept one noght for CHF and diuresed. She still feel SOB and just feels lousy. She was found to be hyponatremic and is being readmitted. - Diagnoses Provider Diagnoses: Hyponatremia - Physician Notifications Discussed Care of Patient With: Adriana Dean Time Discussed With Above Provider: 17:05 Instructed by Provider To: MD Will See In ED Discharge - Discharge Plan Condition: Stable Disposition: ADMITTED TO [facility] Referrals: Alvaro Marks MD [Primary Care Provider] - The documentation as recorded by the Dominique bonilla Edward accurately reflects the service I personally performed and the decisions made by me, Nimesh Rose MD.
[2017-04-07] MEDS: Heparin VIAL(*) 5000 UNITS/ML VIAL (FIVE THOUSAND) SUBCUT SCH (22:17)
[2017-04-07 22:40] LABS: BUN/Creatinine Ratio 21.6 (8-20); Calcium 8.5 mg/dL (8.6-10.3); EGFR African American 96.4 (>60); Potassium 3.3 mmol/L (3.5-5.0)
[2017-04-08] MEDS ORDERED: Sodium Chloride 3% HYPERTONIC* 500 ML IVPB SCH ×2 (01:00)
[2017-04-08] MEDS: Acetaminophen TAB* 325 MG PO PRN ×2 (01:22→05:31)
[2017-04-08 01:28] LABS: TSH (Thyroid Stimulating Horm) 1.76 mcIU/mL (0.34-5.60)
[2017-04-08] MEDS: Levothyroxine TAB* 75 MCG TAB PO SCH (05:31)
[2017-04-08] MEDS: Heparin VIAL(*) 5000 UNITS/ML VIAL (FIVE THOUSAND) SUBCUT SCH ×3 (05:32→21:03)
[2017-04-08 05:54] LABS: BUN/Creatinine Ratio 20.3 (8-20); EGFR African American 96.4 (>60); Potassium 3.4 mmol/L (3.5-5.0)
[2017-04-08 06:31] LABS: Magnesium 1.7 mg/dL (1.9-2.7)
[2017-04-08] MEDS: Carvedilol TAB* 3.125 MG PO SCH ×2 (07:48→18:24)
[2017-04-08] MEDS: Aspirin EC Low Dose* 81 MG TAB.EC PO SCH (07:48)
[2017-04-08] MEDS: Torsemide TAB* 20 MG PO SCH (07:48)
--- NOTE | 2017-04-08 07:48 | PN ---
Subjective Date of Service: 04/08/17 Interval History: Feels better today. Less SOB. Neck crys present but somewhat better. No new c/ o. Family History: Findings - Skin cancer Social History: Findings - Lives alone. No alcohol or tobacco use. Daughter Elle is her SDM. Past Medical History: Findings - L breast cancer. Cardiomyopathy, paroxysmalSVT. Hypothyroid Objective Active Medications: Acetaminophen (Tylenol Tab*) 650 mg PO Q6H PRN PRN Reason: PAIN Last Admin: 04/08/17 05:31 Dose: 650 mg Aspirin (Aspirin Ec Low Dose*) 81 mg PO DAILY [facility] Carvedilol (Coreg Tab*) 3.125 mg PO BID WITH MEALS [facility] Heparin Sodium (Porcine) (Heparin Vial(*)) 5,000 units SUBCUT Q8HR [facility] Last Admin: 04/08/17 05:32 Dose: 5,000 units Levothyroxine Sodium (Synthroid Tab*) 75 mcg PO DAILY@0600 [facility] Last Admin: 04/08/17 05:31 Dose: 75 mcg Torsemide (Demadex*) 40 mg PO DAILY [facility] Vital Signs 04/07/17 04/07/17 04/07/17 18:30 18:50 18:57 Temperature 97.1 F Pulse Rate 108 112 Respiratory 20 22 18 Rate Blood Pressure 102/87 105/76 119/89 (mmHg) O2 Sat by Pulse 96 95 94 Oximetry 04/07/17 04/07/17 04/07/17 19:00 19:01 19:15 Temperature Pulse Rate Respiratory 17 20 27 Rate Blood Pressure 105/76 103/88 (mmHg) O2 Sat by Pulse 94 93 94 Oximetry 04/07/17 04/07/17 04/07/17 19:30 19:31 19:45 Temperature 97.1 F Pulse Rate Respiratory 20 20 27 Rate Blood Pressure 119/84 123/85 (mmHg) O2 Sat by Pulse 93 92 95 Oximetry 04/07/17 04/07/17 04/07/17 20:00 20:15 20:30 Temperature Pulse Rate Respiratory 22 22 22 Rate Blood Pressure 107/80 131/86 116/84 (mmHg) O2 Sat by Pulse 94 89 93 Oximetry 04/07/17 04/07/17 04/07/17 20:45 21:00 21:15 Temperature Pulse Rate 97 Respiratory 21 24 22 Rate Blood Pressure 112/71 105/77 118/82 (mmHg) O2 Sat by Pulse 94 94 90 Oximetry 04/07/17 04/07/17 04/07/17 21:30 21:45 22:00 Temperature Pulse Rate 90 92 92 Respiratory 21 18 18 Rate Blood Pressure 110/80 111/66 106/72 (mmHg) O2 Sat by Pulse 95 95 95 Oximetry 04/07/17 04/07/17 04/07/17 22:02 23:00 23:01 Temperature Pulse Rate 90 100 110 Respiratory 17 19 26 Rate Blood Pressure 100/77 (mmHg) O2 Sat by Pulse 96 92 88 Oximetry 04/07/17 04/07/17 04/08/17 23:17 23:59 00:00 Temperature Pulse Rate 96 99 Respiratory 18 20 19 Rate Blood Pressure 124/88 (mmHg) O2 Sat by Pulse 97 98 Oximetry 04/08/17 04/08/17 04/08/17 00:01 00:07 00:08 Temperature Pulse Rate 85 81 Respiratory 16 23 23 Rate Blood Pressure (mmHg) O2 Sat by Pulse 97 97 97 Oximetry 04/08/17 04/08/17 04/08/17 01:00 01:02 01:27 Temperature 97.5 F Pulse Rate Respiratory 22 14 20 Rate Blood Pressure 80/68 107/71 (mmHg) O2 Sat by Pulse 96 96 Oximetry 04/08/17 04/08/17 04/08/17 02:00 03:00 03:01 Temperature Pulse Rate 106 111 Respiratory 22 22 25 Rate Blood Pressure 115/85 114/81 (mmHg) O2 Sat by Pulse 93 96 97 Oximetry 04/08/17 04/08/17 04/08/17 03:42 03:52 04:00 Temperature 97.4 F Pulse Rate Respiratory 19 19 Rate Blood Pressure 108/74 (mmHg) O2 Sat by Pulse 97 Oximetry 04/08/17 04/08/17 04/08/17 05:00 05:32 06:00 Temperature Pulse Rate 95 Respiratory 23 17 21 Rate Blood Pressure 120/83 103/72 (mmHg) O2 Sat by Pulse 97 92 Oximetry Oxygen Devices in Use Now: None Appearance: Alert, sitting on the edge of the ICU bed. In good spirits. Looks comfortable. Eyes: No Scleral Icterus Neck: NL Appearance and Movements; NL JVP, Trachea Midline Respiratory: Symmetrical Chest Expansion and Respiratory Effort, Clear to Auscultation, Clear to Percussion Cardiovascular: NL Sounds; No Murmurs; No JVD, RRR, No Edema, - Extremities: No Edema, No Clubbing, Cyanosis, - Skin: No Rash or Ulcers, No Nodules or Sclerosis, - Neurological: Alert and Oriented x 3, NL Sensation Result Diagrams: 04/07/17 15:15 04/08/17 05:25 Additional Lab and Data: Lab Results 04/07/17 04/07/17 04/07/17 Range/Units 15:15 15:15 15:15 WBC 7.1 (3.5-10.8) 10^3/ul RBC 4.00 (4.0-5.4) 10^6/ul Hgb 12.9 (12.0-16.0) g/dl Hct 36 (35-47) % MCV 91 (80-97) fL MCH 32 H (27-31) pg MCHC 36 (31-36) g/dl RDW 14 (10.5-15) % Plt Count 227 (150-450) 10^3/ul MPV 9 (7.4-10.4) um3 Neut % (Auto) 84.8 H (38-83) % Lymph % (Auto) 9.6 L (25-47) % [place] % (Auto) 4.9 (1-9) % Eos % (Auto) 0.5 (0-6) % Baso % (Auto) 0.2 (0-2) % Absolute Neuts (auto) 6.0 (1.5-7.7) 10^3/ul Absolute Lymphs (auto) 0.7 L (1.0-4.8) 10^3/ul Absolute Monos (auto) 0.4 (0-0.8) 10^3/ul Absolute Eos (auto) 0 (0-0.6) 10^3/ul Absolute Basos (auto) 0 (0-0.2) 10^3/ul Absolute Nucleated RBC 0.01 10^3/ul Nucleated RBC % 0.2 Sodium 117 L* D (133-145) mmol/L Potassium TNP Chloride 85 L (101-111) mmol/L Carbon Dioxide 23 (22-32) mmol/L Anion Gap 9 (2-11) mmol/L BUN 16 (6-24) mg/dL Creatinine 0.82 (0.51-0.95) mg/dL Est GFR ( Amer) 85.6 (>60) Est GFR (Non-Af Amer) 66.6 (>60) BUN/Creatinine Ratio 19.5 (8-20) Glucose 143 H (70-100) mg/dL Calcium 9.1 (8.6-10.3) mg/dL Total Bilirubin 1.10 H (0.2-1.0) mg/dL AST TNP ALT 77 H (7-52) U/L Alkaline Phosphatase 53 (34-104) U/L Troponin I 0.02 (<0.04) ng/mL C-Reactive Protein 2.51 (< 5.00) mg/L B-Natriuretic Peptide 1242 H ( - 100) pg/mL Total Protein 6.7 (6.4-8.9) g/dL Albumin 4.4 (3.2-5.2) g/dL Globulin 2.3 (2-4) g/dL Albumin/Globulin Ratio 1.9 (1-3) / Range/Units 17:25 WBC (3.5-10.8) 10^3/ul RBC (4.0-5.4) 10^6/ul Hgb (12.0-16.0) g/dl Hct (35-47) % MCV (80-97) fL MCH (27-31) pg MCHC (31-36) g/dl RDW (10.5-15) % Plt Count (150-450) 10^3/ul MPV (7.4-10.4) um3 Neut % (Auto) (38-83) % Lymph % (Auto) (25-47) % [place] % (Auto) (1-9) % Eos % (Auto) (0-6) % Baso % (Auto) (0-2) % Absolute Neuts (auto) (1.5-7.7) 10^3/ul Absolute Lymphs (auto) (1.0-4.8) 10^3/ul Absolute Monos (auto) (0-0.8) 10^3/ul Absolute Eos (auto) (0-0.6) 10^3/ul Absolute Basos (auto) (0-0.2) 10^3/ul Absolute Nucleated RBC 10^3/ul Nucleated RBC % Sodium 118 L* (133-145) mmol/L Potassium 4.0 Chloride (101-111) mmol/L Carbon Dioxide (22-32) mmol/L Anion Gap (2-11) mmol/L BUN (6-24) mg/dL Creatinine (0.51-0.95) mg/dL Est GFR ( Amer) (>60) Est GFR (Non-Af Amer) (>60) BUN/Creatinine Ratio (8-20) Glucose (70-100) mg/dL Calcium (8.6-10.3) mg/dL Total Bilirubin (0.2-1.0) mg/dL AST 55 H ALT (7-52) U/L Alkaline Phosphatase (34-104) U/L Troponin I (<0.04) ng/mL C-Reactive Protein (< 5.00) mg/L B-Natriuretic Peptide ( - 100) pg/mL Total Protein (6.4-8.9) g/dL Albumin (3.2-5.2) g/dL Globulin (2-4) g/dL Albumin/Globulin Ratio (1-3) Microbiology and Other Data: Microbiology 04/07/17 19:29 Nasal Screen MRSA (PCR)(YUE) - Final Nasal Mrsa Negative Assess/Plan/Problems-Billing Assessment: - Patient Problems (1) Hyponatremia Current Visit: Yes Status: Acute Code(s): E87.1 - HYPO-OSMOLALITY AND HYPONATREMIA SNOMED Code(s): 48521342 Comment: Na+ 127 04/08. 1500 ml fluid restriction. BMP 04/09. Continue to hold citalopram. (2) CHF (congestive heart failure) Current Visit: Yes Status: Acute Code(s): I50.9 - HEART FAILURE, UNSPECIFIED SNOMED Code(s): 97535874 Comment: Acute on chronic systolic CHF. Torsemide 40 mg po daily start . Daily weights. Follow BMP also. (3) Hypothyroid Current Visit: Yes Status: Acute Code(s): E03.9 - HYPOTHYROIDISM, UNSPECIFIED SNOMED Code(s): 04731740 Comment: TSH wnl 04/05/17. Continue home dose levothyroxine. (4) Neck pain Current Visit: Yes Status: Acute Code(s): M54.2 - CERVICALGIA SNOMED Code( s): 34329285 Comment: Schedule APAP ordered. Pt very opposed to taking any opiods.
[2017-04-08] MEDS ORDERED: Ibuprofen TAB* 600 MG PO ONE (10:58)
[2017-04-08] MEDS ORDERED: Ibuprofen TAB* 600 MG ONE (11:07)
[2017-04-08] MEDS: Acetaminophen TAB* 325 MG PO SCH ×3 (12:12→21:03)
--- NOTE | 2017-04-08 13:50 | RAD ---
Indication: RIGHT side neck pain post fall 2 days ago. Comparison: February 18, 2008 Technique: AP, open-mouth odontoid, and lateral views cervical spine. Report: Negative for facet subluxation at any level through the cervicothoracic junction. No fracture evident. Chronic finding of reversal of cervical lordosis from C4 through C7. 2 mm degenerative C4-C5 anterolisthesis without change. Advanced C5-C6 and C6-C7 disc space narrowing with associated vertebral endplate osteophytes and reactive endplate sclerosis without significant change compared with the 2008 exam. Diffuse facet joint osteoarthritis. Unremarkable prevertebral soft tissue contours. IMPRESSION: No traumatic injury of the cervical spine evident. Chronic advanced degenerative spondylosis as described.
[2017-04-08] MEDS ORDERED: Furosemide IV* 10 MG/ML VIAL (40 MG) IV ONE (15:05)
[2017-04-08 15:47] LABS: Urine Bilirubin Negative (Negative); Urine Glucose Negative (Negative); Urine Nitrite Negative (Negative)
[2017-04-08] MEDS: Sodium Chloride 3% HYPERTONIC* 500 ML IVPB SCH (16:57)
[2017-04-08 23:34] LABS: Calcium 8.1 mg/dL (8.6-10.3); EGFR African American 75.9 (>60)
[2017-04-09] MEDS: Levothyroxine TAB* 75 MCG TAB PO SCH (05:49)
[2017-04-09] MEDS: Heparin VIAL(*) 5000 UNITS/ML VIAL (FIVE THOUSAND) SUBCUT SCH ×3 (05:49→22:13)
[2017-04-09 06:14] LABS: BUN/Creatinine Ratio 19.8 (8-20); Calcium 8.5 mg/dL (8.6-10.3); EGFR African American 75.9 (>60); Potassium 3.2 mmol/L (3.5-5.0)
[2017-04-09] MEDS ORDERED: Sodium Chloride 3% HYPERTONIC* 500 ML IVPB SCH ×3 (06:23→21:00)
--- NOTE | 2017-04-09 06:23 | PN ---
Progress Note - Progress Note Date of Service: 04/09/17 Note: sodium remains low despite hypertonic saline - will increase rate to 30 /hr. from 20.
[2017-04-09 06:49] LABS: Magnesium 1.8 mg/dL (1.9-2.7)
--- NOTE | 2017-04-09 07:24 | PN ---
Subjective Date of Service: 04/09/17 Interval History: Mild nausea but ready for breakfast. No SOB. No new c/o. Family History: Findings - Skin cancer Social History: Findings - Lives alone. No alcohol or tobacco use. Daughter Elle is her SDM. Past Medical History: Findings - L breast cancer. Cardiomyopathy, paroxysmalSVT. Hypothyroid Objective Active Medications: Acetaminophen (Tylenol Tab*) 650 mg PO Q6H PRN PRN Reason: PAIN Last Admin: 04/08/17 05:31 Dose: 650 mg Acetaminophen (Tylenol Tab*) 650 mg PO QID [facility] Last Admin: 04/08/17 21:03 Dose: 650 mg Aspirin (Aspirin Ec Low Dose*) 81 mg PO DAILY [facility] Last Admin: 04/08/17 07:48 Dose: 81 mg Carvedilol (Coreg Tab*) 3.125 mg PO BID WITH MEALS [facility] Last Admin: 04/08/17 18:24 Dose: 3.125 mg Demeclocycline HCl (Declomycin Tab*) 150 mg PO TID [facility] Heparin Sodium (Porcine) (Heparin Vial(*)) 5,000 units SUBCUT Q8HR [facility] Last Admin: 04/09/17 05:49 Dose: 5,000 units Levothyroxine Sodium (Synthroid Tab*) 75 mcg PO DAILY@0600 [facility] Last Admin: 04/09/17 05:49 Dose: 75 mcg Torsemide (Demadex*) 40 mg PO DAILY [facility] Last Admin: 04/08/17 07:48 Dose: 40 mg Vital Signs 04/08/17 04/08/17 04/08/17 07:59 08:00 08:01 Temperature 97.8 F Pulse Rate 101 94 Respiratory 23 22 17 Rate Blood Pressure 118/74 (mmHg) O2 Sat by Pulse 93 95 Oximetry 04/08/17 04/08/17 04/08/17 09:00 09:01 10:00 Temperature Pulse Rate 110 112 94 Respiratory 17 22 21 Rate Blood Pressure 107/86 112/70 (mmHg) O2 Sat by Pulse 96 95 97 Oximetry 04/08/17 04/08/17 04/08/17 10:01 10:56 15:51 Temperature 97.5 F 98.0 F Pulse Rate 91 104 94 Respiratory 22 20 16 Rate Blood Pressure 96/67 106/65 (mmHg) O2 Sat by Pulse 96 98 94 Oximetry 04/08/17 04/08/1704/08/17 16:18 16:30 16:46 Temperature 98.8 F Pulse Rate 105 93 103 Respiratory 19 17 15 Rate Blood Pressure 108/77 112/74 102/69 (mmHg) O2 Sat by Pulse 94 94 96 Oximetry 04/08/17 04/08/17 04/08/17 17:00 17:15 17:30 Temperature Pulse Rate 100 103 107 Respiratory 19 21 16 Rate Blood Pressure 125/71 117/80 100/79 (mmHg) O2 Sat by Pulse 96 95 96 Oximetry 04/08/17 04/08/17 04/08/17 17:46 18:00 18:01 Temperature Pulse Rate 103 102 105 Respiratory 23 19 32 Rate Blood Pressure 104/69 96/75 (mmHg) O2 Sat by Pulse 94 93 92 Oximetry 04/08/17 04/08/17 04/08/17 18:15 18:30 18:34 Temperature Pulse Rate 101 101 Respiratory 22 21 17 Rate Blood Pressure 116/78 112/74 (mmHg) O2 Sat by Pulse 92 92 Oximetry 04/08/17 04/08/17 04/08/17 18:45 18:46 19:00 Temperature Pulse Rate 105 102 90 Respiratory 21 20 25 Rate Blood Pressure 107/75 87/68 (mmHg) O2 Sat by Pulse 94 94 97 Oximetry 04/08/17 04/08/17 04/08/17 19:14 20:00 21:00 Temperature Pulse Rate 107 91 101 Respiratory 27 20 17 Rate Blood Pressure 106/70 93/66 (mmHg) O2 Sat by Pulse 92 93 92 Oximetry 04/08/17 04/08/17 04/08/17 21:01 22:00 23:00 Temperature Pulse Rate 102 90 102 Respiratory 22 21 24 Rate Blood Pressure 108/99 101/75 107/87 (mmHg) O2 Sat by Pulse 94 88 97 Oximetry 04/08/17 04/09/17 04/09/17 23:35 00:00 01:00 Temperature 98.5 F Pulse Rate 94 81 Respiratory 19 19 Rate Blood Pressure 89/62 114/68 (mmHg) O2 Sat by Pulse 96 91 Oximetry 04/09/17 04/09/17 04/09/17 01:01 02:00 03:00 Temperature Pulse Rate 85 81 90 Respiratory 16 16 19 Rate Blood Pressure 106/68 95/65 (mmHg) O2 Sat by Pulse 92 98 95 Oximetry 04/09/17 04/09/17 04/09/17 04:00 05:00 05:28 Temperature 97.4 F Pulse Rate 91 89 Respiratory 19 31 Rate Blood Pressure 107/68 114/77 (mmHg) O2 Sat by Pulse 99 97 Oximetry 04/09/17 06:00 Temperature Pulse Rate 90 Respiratory 22 Rate Blood Pressure 87/56 (mmHg) O2 Sat by Pulse 97 Oximetry Oxygen Devices in Use Now: Nasal Cannula Appearance: Alert, partly up in ICU bed. In good spirits. Looks comfortable. Eyes: No Scleral Icterus Neck: NL Appearance and Movements; NL JVP, No Thyroid Enlargement, Masses Respiratory: Symmetrical Chest Expansion and Respiratory Effort, Clear to Percussion, - - Sl decreased BS R base Cardiovascular: NL Sounds; No Murmurs; No JVD, RRR, No Edema, - Extremities: No Edema, No Clubbing, Cyanosis, - Skin: No Rash or Ulcers, No Nodules or Sclerosis, - Neurological: Alert and Oriented x 3, NL Sensation Result Diagrams: 04/07/17 15:15 04/09/17 05:45 Additional Lab and Data: Lab Results 04/07/17 04/07/17 04/07/17 Range/Units 15:15 15:15 15:15 WBC 7.1 (3.5-10.8) 10^3/ul RBC 4.00 (4.0-5.4) 10^6/ul Hgb 12.9 (12.0-16.0) g/dl Hct 36 (35-47) % MCV 91 (80-97) fL MCH 32 H (27-31) pg MCHC 36 (31-36) g/dl RDW 14 (10.5-15) % Plt Count 227 (150-450) 10^3/ul MPV 9 (7.4-10.4) um3 Neut % (Auto) 84.8 H (38-83) % Lymph % (Auto) 9.6 L (25-47) % Mesa % (Auto) 4.9 (1-9) % Eos % (Auto) 0.5 (0-6) % Baso % (Auto) 0.2 (0-2) % Absolute Neuts (auto) 6.0 (1.5-7.7) 10^3/ul Absolute Lymphs (auto) 0.7 L (1.0-4.8) 10^3/ul Absolute Monos (auto) 0.4 (0-0.8) 10^3/ul Absolute Eos (auto) 0 (0-0.6) 10^3/ul Absolute Basos (auto) 0 (0-0.2) 10^3/ul Absolute Nucleated RBC 0.01 10^3/ul Nucleated RBC % 0.2 Sodium 117 L* D (133-145) mmol/L Potassium TNP Chloride 85 L (101-111) mmol/L Carbon Dioxide 23 (22-32) mmol/L Anion Gap 9 (2-11) mmol/L BUN 16 (6-24) mg/dL Creatinine 0.82 (0.51-0.95) mg/dL Est GFR ( Amer) 85.6 (>60) Est GFR (Non-Af Amer) 66.6 (>60) BUN/Creatinine Ratio 19.5 (8-20) Glucose 143 H (70-100) mg/dL Calcium 9.1 (8.6-10.3) mg/dL Total Bilirubin 1.10 H (0.2-1.0) mg/dL AST TNP ALT 77 H (7-52) U/L Alkaline Phosphatase 53 (34-104) U/L Troponin I 0.02 (<0.04) ng/mL C-Reactive Protein 2.51 (< 5.00) mg/L B-Natriuretic Peptide 1242 H ( - 100) pg/mL Total Protein 6.7 (6.4-8.9) g/dL Albumin 4.4 (3.2-5.2) g/dL Globulin 2.3 (2-4) g/dL Albumin/Globulin Ratio 1.9 (1-3) 04/07/17 Range/Units 17:25 WBC (3.5-10.8) 10^3/ul RBC (4.0-5.4) 10^6/ul Hgb (12.0-16.0) g/dl Hct (35-47) % MCV (80-97) fL MCH (27-31) pg MCHC (31-36) g/dl RDW (10.5-15) % Plt Count (150-450) 10^3/ul MPV (7.4-10.4) um3 Neut % (Auto) (38-83) % Lymph % (Auto) (25-47) % Mesa % (Auto) (1-9) % Eos % (Auto) (0-6) % Baso % (Auto) (0-2) % Absolute Neuts (auto) (1.5-7.7) 10^3/ul Absolute Lymphs (auto) (1.0-4.8) 10^3/ul Absolute Monos (auto) (0-0.8) 10^3/ul Absolute Eos (auto) (0-0.6) 10^3/ul Absolute Basos (auto) (0-0.2) 10^3/ul Absolute Nucleated RBC 10^3/ul Nucleated RBC % Sodium 118 L* (133-145) mmol/L Potassium 4.0 Chloride (101-111) mmol/L Carbon Dioxide (22-32) mmol/L Anion Gap (2-11) mmol/L BUN (6-24) mg/dL Creatinine (0.51-0.95) mg/dL Est GFR ( Amer) (>60) Est GFR (Non-Af Amer) (>60) BUN/Creatinine Ratio (8-20) Glucose (70-100) mg/dL Calcium (8.6-10.3) mg/dL Total Bilirubin (0.2-1.0) mg/dL AST 55 H ALT (7-52) U/L Alkaline Phosphatase (34-104) U/L Troponin I (<0.04) ng/mL C-Reactive Protein (< 5.00) mg/L B-Natriuretic Peptide ( - 100) pg/mL Total Protein (6.4-8.9) g/dL Albumin (3.2-5.2) g/dL Globulin (2-4) g/dL Albumin/Globulin Ratio (1-3) Microbiology and Other Data: Microbiology 04/07/17 19:29 Nasal Screen MRSA (PCR)(YUE) - Final Nasal Mrsa Negative Assess/Plan/Problems-Billing Assessment: - Patient Problems (1) Hyponatremia Current Visit: Yes Status: Acute Code(s): E87.1 - HYPO-OSMOLALITY AND HYPONATREMIA SNOMED Code(s): 21010506 Comment: Na+ 127 04/08. 1500 ml fluid restriction. Multiple BMP's ordered. Start demeclocycline 04/09. Continue to hold citalopram. My plan is to monitor patient in the ICU until her Na+ level is acceptable AND stable on the exact treatment regimen she will take at home, at which point she can be discharged home. (2) CHF (congestive heart failure) Current Visit: Yes Status: Acute Code(s): I50.9 - HEART FAILURE, UNSPECIFIED SNOMED Code(s): 70883977 Comment: Acute on chronic systolic CHF. Torsemide 40 mg po daily started . Daily weights. Follow BMP also. (3) Hypothyroid Current Visit: Yes Status: Acute Code(s): E03.9 - HYPOTHYROIDISM, UNSPECIFIED SNOMED Code(s): 73312774 Comment: TSH wnl 04/05/17. Continue home dose levothyroxine. (4) Neck pain Current Visit: Yes Status: Acute Code(s): M54.2 - CERVICALGIA SNOMED Code( s): 30859214 Comment: Schedule APAP ordered. PRN tramadol ordered. Neck pain better .
[2017-04-09] MEDS ORDERED: traMADol TAB* 50 MG PO PRN (07:30)
[2017-04-09] MEDS: Aspirin EC Low Dose* 81 MG TAB.EC PO SCH (08:44)
[2017-04-09] MEDS: Carvedilol TAB* 3.125 MG PO SCH ×2 (08:44→17:30)
[2017-04-09] MEDS: Acetaminophen TAB* 325 MG PO SCH ×4 (08:44→22:12)
[2017-04-09] MEDS: Demeclocycline TAB* 150 MG PO SCH ×4 (08:44→22:13)
[2017-04-09] MEDS: Torsemide TAB* 20 MG PO SCH (08:54)
[2017-04-09 12:54] LABS: BUN/Creatinine Ratio 20.7 (8-20); Calcium 8.5 mg/dL (8.6-10.3); EGFR Non-African American 62.2 (>60); Potassium 3.1 mmol/L (3.5-5.0)
[2017-04-09 20:04] LABS: BUN/Creatinine Ratio 21.6 (8-20); Calcium 8.6 mg/dL (8.6-10.3); EGFR African American 70.5 (>60); EGFR Non-African American 54.8 (>60); Potassium 3.1 mmol/L (3.5-5.0)
[2017-04-09] MEDS: Sodium Chloride 3% HYPERTONIC* 500 ML IVPB SCH (22:19)
[2017-04-10] MEDS: Heparin VIAL(*) 5000 UNITS/ML VIAL (FIVE THOUSAND) SUBCUT SCH ×3 (06:04→21:43)
[2017-04-10] MEDS: Levothyroxine TAB* 75 MCG TAB PO SCH (06:04)
[2017-04-10] MEDS: Torsemide TAB* 20 MG PO SCH (08:50)
[2017-04-10] MEDS: Aspirin EC Low Dose* 81 MG TAB.EC PO SCH (08:50)
[2017-04-10] MEDS: Demeclocycline TAB* 150 MG PO SCH ×2 (08:50→17:30)
[2017-04-10] MEDS: Carvedilol TAB* 3.125 MG PO SCH ×2 (08:50→17:35)
[2017-04-10] MEDS: Acetaminophen TAB* 325 MG PO SCH ×5 (08:51→22:48)
[2017-04-10 13:47] LABS: BUN/Creatinine Ratio 20.2 (8-20); Calcium 9.3 mg/dL (8.6-10.3); EGFR African American 77.9 (>60); EGFR Non-African American 60.6 (>60); HDL Cholesterol 61.2 mg/dL; Potassium 3.1 mmol/L (3.5-5.0)
[2017-04-10] MEDS ORDERED: Magnesium Sulfate 1 GM IV* 1 GM/100 ML BAG IV ONE (14:24)
[2017-04-10] MEDS: Potassium Chlor TAB* 20 MEQ TAB.ER PO SCH ×2 (16:55→21:43)
--- NOTE | 2017-04-10 20:32 | PN ---
Subjective Date of Service: 04/10/17 Interval History: Na corrected too quickly 127 then 131 (was 117 last afternoon, 24 hours prior). Pt without complaint. SOB has improved. Attests to drinking at least 2L fluids at home. Demeclocycline stopped this afternoon. 2.5L net negative yesterday. Urine studies still pending. Family History: Findings - Skin cancer Social History: Findings - Lives alone. No alcohol or tobacco use. Daughter Elle is her SDM. Past Medical History: Findings - L breast cancer. Cardiomyopathy, paroxysmalSVT. Hypothyroid Objective Active Medications: Acetaminophen (Tylenol Tab*) 650 mg PO Q6H PRN PRN Reason: PAIN Last Admin: 04/08/17 05:31 Dose: 650 mg Acetaminophen (Tylenol Tab*) 650 mg PO QID [facility] Last Admin: 04/10/17 17:36 Dose: 650 mg Aspirin (Aspirin Ec Low Dose*) 81 mg PO DAILY [facility] Last Admin: 04/10/17 08:50 Dose: 81 mg Carvedilol (Coreg Tab*) 3.125 mg PO BID WITH MEALS [facility] Last Admin: 04/10/17 17:35 Dose: 3.125 mg Heparin Sodium (Porcine) (Heparin Vial(*)) 5,000 units SUBCUT Q8HR [facility] Last Admin: 04/10/17 16:57 Dose: 5,000 units Levothyroxine Sodium (Synthroid Tab*) 75 mcg PO DAILY@0600 [facility] Last Admin: 04/10/17 06:04 Dose: 75 mcg Potassium Chloride (Klor Con Er Tab*) 40 meq PO BID [facility] Stop: 04/10/17 21:01 Last Admin: 04/10/17 16:55 Dose: 40 meq Torsemide (Demadex*) 40 mg PO DAILY [facility] Last Admin: 04/10/17 08:50 Dose: 40 mg Tramadol HCl (Ultram*) 50 mg PO Q8H PRN PRN Reason: PAIN - MODERATE TO SEVERE Vital Signs 04/09/17 04/09/17 04/09/17 20:32 21:00 21:01 Temperature Pulse Rate 81 86 Respiratory 20 20 17 Rate Blood Pressure 101/67 (mmHg) O2 Sat by Pulse 94 95 Oximetry 04/09/17 04/09/17 04/10/17 22:00 23:00 00:00 Temperature 97.4 F Pulse Rate 77 81 Respiratory 17 19 13 Rate Blood Pressure 89/63 95/65 94/63 (mmHg) O2 Sat by Pulse 99 100 Oximetry 04/10/17 04/10/17 04/10/17 00:01 00:11 01:00 Temperature Pulse Rate 81 80 77 Respiratory 16 9 16 Rate Blood Pressure 99/61 (mmHg) O2 Sat by Pulse 100 100 99 Oximetry 04/10/17 04/10/17 04/10/17 01:01 02:00 03:00 Temperature Pulse Rate 84 72 69 Respiratory 22 14 17 Rate Blood Pressure 103/67 104/63 (mmHg) O2 Sat by Pulse 93 92 97 Oximetry 04/10/17 04/10/17 04/10/17 03:01 03:55 04:00 Temperature 97.9 F Pulse Rate 71 91 85 Respiratory 18 17 15 Rate Blood Pressure 104/63 110/77 (mmHg) O2 Sat by Pulse 97 90 100 Oximetry 04/10/17 04/10/17 04/10/17 04:01 05:00 05:01 Temperature Pulse Rate 80 84 80 Respiratory 19 25 18 Rate Blood Pressure 114/77 (mmHg) O2 Sat by Pulse 98 95 92 Oximetry 04/10/17 04/10/17 04/10/17 06:00 06:13 07:00 Temperature Pulse Rate 79 88 Respiratory 19 30 26 Rate Blood Pressure 86/63 106/78 109/70 (mmHg) O2 Sat by Pulse 94 95 Oximetry 04/10/17 04/10/17 04/10/17 07:38 08:00 08:01 Temperature 97.2 F Pulse Rate 88 94 Respiratory 32 21 Rate Blood Pressure 107/76 (mmHg) O2 Sat by Pulse 97 96 Oximetry 04/10/17 04/10/17 04/10/17 09:00 09:01 09:31 Temperature Pulse Rate 96 90 Respiratory 21 17 18 Rate Blood Pressure 113/76 (mmHg) O2 Sat by Pulse 83 91 Oximetry 04/10/17 04/10/17 04/10/17 10:00 10:01 11:00 Temperature Pulse Rate 76 Respiratory 19 19 25 Rate Blood Pressure 113/69 (mmHg) O2 Sat by Pulse 97 Oximetry 04/10/17 04/10/17 04/10/17 11:01 11:10 11:42 Temperature Pulse Rate 75 85 Respiratory 18 20 24 Rate Blood Pressure 95/60 92/55 (mmHg) O2 Sat by Pulse 95 93 Oximetry 04/10/17 04/10/17 04/10/17 11:45 12:00 12:01 Temperature 98.1 F Pulse Rate 76 75 Respiratory 19 22 Rate Blood Pressure 95/62 (mmHg) O2 Sat by Pulse 90 92 Oximetry 04/10/17 04/10/17 04/10/17 13:00 13:01 14:00 Temperature Pulse Rate 75 80 87 Respiratory 18 15 25 Rate Blood Pressure 98/60 108/66 (mmHg) O2 Sat by Pulse 96 95 95 Oximetry 04/10/17 04/10/17 04/10/17 15:00 16:00 17:00 Temperature 98.5 F Pulse Rate 77 74 Respiratory 16 20 19 Rate Blood Pressure 103/58 108/65 (mmHg) O2 Sat by Pulse 98 98 Oximetry 04/10/17 04/10/17 04/10/17 17:26 18:00 19:00 Temperature Pulse Rate 78 89 109 Respiratory 18 31 19 Rate Blood Pressure 99/65 95/66 97/66 (mmHg) O2 Sat by Pulse 94 96 96 Oximetry 04/10/17 20:00 Temperature Pulse Rate 87 Respiratory 18 Rate Blood Pressure 84/57 (mmHg) O2 Sat by Pulse 94 Oximetry Oxygen Devices in Use Now: Nasal Cannula Appearance: no acute distress. Eyes: No Scleral Icterus Ears/Nose/Mouth/Throat: NL Teeth, Lips, Gums, Mucous Membranes Moist Neck: NL Appearance and Movements; NL JVP Respiratory: Symmetrical Chest Expansion and Respiratory Effort, Clear to Auscultation Cardiovascular: NL Sounds; No Murmurs; No JVD, RRR Abdominal: NL Sounds; No Tenderness; No Distention Extremities: - - trace to 1+ edema Skin: No Rash or Ulcers Neurological: Alert and Oriented x 3, NL Sensation Result Diagrams: 04/07/17 15:15 04/10/17 13:10 Additional Lab and Data: Laboratory Results - last 24 hr 04/07/17 04/08/17 04/08/17 22:15 00:56 15:09 Sodium Potassium Chloride Carbon Dioxide Anion Gap BUN Creatinine Est GFR ( Amer) Est GFR (Non-Af Amer) BUN/Creatinine Ratio Glucose Osmolality 251 L Calcium Triglycerides Cholesterol LDL Cholesterol HDL Cholesterol Urine Osmolality 290 282 04/10/17 04/10/17 02:30 13:10 Sodium 127 L 131 L Potassium 3.1 L Chloride 95 L Carbon Dioxide 27 Anion Gap 9 BUN 18 Creatinine 0.89 Est GFR ( Amer) 77.9 Est GFR (Non-Af Amer) 60.6 BUN/Creatinine Ratio 20.2 H Glucose 99 Osmolality Calcium 9.3 Triglycerides 117 Cholesterol 198 LDL Cholesterol 113 HDL Cholesterol 61.2 Urine Osmolality Microbiology and Other Data: Microbiology 04/07/17 19:29 Nasal Screen MRSA (PCR)([facility]) - Final Nasal Mrsa Negative Assess/Plan/Problems-Billing Assessment: 81 year old female PMH severe chronic ischemic cardiomyopathy who presented with SOB 2/2 acute CHF, Course c/b acute hyponatremia with labile correction. - Patient Problems (1) CHF (congestive heart failure) Current Visit: Yes Status: Acute Code(s): I50.9 - HEART FAILURE, UNSPECIFIED SNOMED Code(s): 57292947 Comment: Acute on chronic systolic CHF. Torsemide 40 mg po daily started . Daily weights. Net negative 2.5L yesterday. (2) Hyponatremia Current Visit: Yes Status: Acute Code(s): E87.1 - HYPO-OSMOLALITY AND HYPONATREMIA SNOMED Code(s): 52792602 Comment: Last Na 131. 1500 ml fluid restriction. BMP q6 for now. Stop demeclocycline 04/10 as correcting to fast, may need D5W. Continue to hold citalopram. f/u Nephrology recs. Cortisol and TSH wnl. Consider uric acid. (3) Hypothyroid Current Visit: Yes Status: Acute Code(s): E03.9 - HYPOTHYROIDISM, UNSPECIFIED SNOMED Code(s): 28985813 Comment: TSH wnl 04/05/17. Continue home dose levothyroxine. Status and Disposition: medicine ICU, likely step down 04/11 Attending: Adan Nair
[2017-04-10 21:44] LABS: Urine Creatinine/24HR 1185.12 mg/24Hr (600-1800)
[2017-04-10 22:12] LABS: BUN/Creatinine Ratio 19.3 (8-20); EGFR African American 61.7 (>60); EGFR Non-African American 47.9 (>60); Potassium 3.5 mmol/L (3.5-5.0)
[2017-04-11] MEDS: Heparin VIAL(*) 5000 UNITS/ML VIAL (FIVE THOUSAND) SUBCUT SCH ×3 (05:15→21:34)
[2017-04-11] MEDS: Levothyroxine TAB* 75 MCG TAB PO SCH (05:15)
[2017-04-11 05:38] LABS: BUN/Creatinine Ratio 21.4 (8-20); Calcium 8.9 mg/dL (8.6-10.3); EGFR African American 83.3 (>60); EGFR Non-African American 64.8 (>60); Potassium 3.7 mmol/L (3.5-5.0)
[2017-04-11] MEDS: Acetaminophen TAB* 325 MG PO SCH ×4 (09:39→21:34)
[2017-04-11] MEDS: Torsemide TAB* 20 MG PO SCH (09:39)
[2017-04-11] MEDS: Carvedilol TAB* 3.125 MG PO SCH ×2 (09:39→17:59)
[2017-04-11] MEDS: Aspirin EC Low Dose* 81 MG TAB.EC PO SCH (09:39)
[2017-04-11] MEDS ORDERED: Potassium Chlor TAB* 20 MEQ TAB.ER PO ONE (15:22)
--- NOTE | 2017-04-11 21:28 | PN ---
Subjective Date of Service: 04/11/17 Interval History: Na stable at 134. relative hypotension to mid 80s. Pt anxious, family with many questions. transferred to floor from ICU. Negative 1.9L. Family History: Findings - Skin cancer Social History: Findings - Lives alone. No alcohol or tobacco use. Daughter Elle is her SDM. Past Medical History: Findings - L breast cancer. Cardiomyopathy, paroxysmalSVT. Hypothyroid Objective Active Medications: Acetaminophen (Tylenol Tab*) 650 mg PO Q6H PRN PRN Reason: PAIN Last Admin: 04/08/17 05:31 Dose: 650 mg Acetaminophen (Tylenol Tab*) 650 mg PO QID [facility] Last Admin: 04/11/17 18:00 Dose: 650 mg Aspirin (Aspirin Ec Low Dose*) 81 mg PO DAILY [facility] Last Admin: 04/11/17 09:39 Dose: 81 mg Carvedilol (Coreg Tab*) 3.125 mg PO BID WITH MEALS [facility] Last Admin: 04/11/17 17:59 Dose: 3.125 mg Heparin Sodium (Porcine) (Heparin Vial(*)) 5,000 units SUBCUT Q8HR [facility] Last Admin: 04/11/17 14:09 Dose: 5,000 units Levothyroxine Sodium (Synthroid Tab*) 75 mcg PO DAILY@0600 [facility] Last Admin: 04/11/17 05:15 Dose: 75 mcg Torsemide (Demadex*) 20 mg PO DAILY [facility] Tramadol HCl (Ultram*) 50 mg PO Q8H PRN PRN Reason: PAIN - MODERATE TO SEVERE Vital Signs 04/10/17 04/10/17 04/10/17 22:00 22:01 22:55 Temperature Pulse Rate 93 91 Respiratory 26 35 16 Rate Blood Pressure 106/67 (mmHg) O2 Sat by Pulse 98 97 Oximetry 04/10/17 04/10/17 04/10/17 23:00 23:01 23:42 Temperature 97.6 F Pulse Rate 92 75 Respiratory 34 31 Rate Blood Pressure 105/71 (mmHg) O2 Sat by Pulse 98 97 Oximetry 04/10/17 04/11/17 04/11/17 23:43 00:00 00:01 Temperature Pulse Rate 96 72 73 Respiratory 30 20 15 Rate Blood Pressure 99/59 (mmHg) O2 Sat by Pulse 98 99 98 Oximetry 04/11/17 04/11/17 04/11/17 01:00 01:01 02:00 Temperature Pulse Rate 106 92 95 Respiratory 23 41 18 Rate Blood Pressure 121/74 104/82 (mmHg) O2 Sat by Pulse 98 98 94 Oximetry 04/11/17 04/11/17 04/11/17 02:01 03:00 03:31 Temperature Pulse Rate 87 97 Respiratory 14 20 20 Rate Blood Pressure 103/69 (mmHg) O2 Sat by Pulse 96 96 Oximetry 04/11/17 04/11/17 04/11/17 04:00 05:00 05:23 Temperature 97.9 F Pulse Rate 71 77 Respiratory 17 21 20 Rate Blood Pressure 95/62 91/57 (mmHg) O2 Sat by Pulse 98 99 Oximetry 04/11/17 04/11/17 04/11/17 06:00 06:01 07:00 Temperature Pulse Rate 100 96 81 Respiratory 19 14 8 Rate Blood Pressure 101/58 106/75 (mmHg) O2 Sat by Pulse 91 94 91 Oximetry 04/11/17 04/11/17 04/11/17 08:00 08:01 09:00 Temperature 99 F Pulse Rate 94 98 74 Respiratory 16 16 14 Rate Blood Pressure 114/82 112/75 (mmHg) O2 Sat by Pulse 90 91 93 Oximetry 04/11/17 04/11/17 04/11/17 10:00 11:00 12:03 Temperature Pulse Rate 106 100 80 Respiratory 16 14 16 Rate Blood Pressure 97/63 84/53 (mmHg) O2 Sat by Pulse 95 92 100 Oximetry 04/11/17 04/11/17 04/11/17 12:04 12:24 15:35 Temperature 98.2 F 98.2 F 97.4 F Pulse Rate 80 101 Respiratory 16 Rate Blood Pressure 84/58 84/58 94/56 (mmHg) O2 Sat by Pulse 100 98 Oximetry 04/11/17 04/11/17 04/11/17 18:00 19:52 21:02 Temperature 97.6 F Pulse Rate 85 95 Respiratory 16 18 Rate Blood Pressure 119/62 87/53 (mmHg) O2 Sat by Pulse 98 Oximetry Oxygen Devices in Use Now: Nasal Cannula Appearance: no acute distress Ears/Nose/Mouth/Throat: NL Teeth, Lips, Gums, Mucous Membranes Moist Respiratory: Symmetrical Chest Expansion and Respiratory Effort, Clear to Auscultation Cardiovascular: NL Sounds; No Murmurs; No JVD, RRR Abdominal: NL Sounds; No Tenderness; No Distention, No Hepatosplenomegaly Extremities: No Edema Skin: No Rash or Ulcers Neurological: Alert and Oriented x 3, NL Muscle Strength and Tone Result Diagrams: 04/07/17 15:15 04/11/17 05:15 Additional Lab and Data: Laboratory Results - last 24 hr 04/10/17 04/10/17 04/11/17 20:00 20:00 05:15 Sodium 134 134 Potassium 3.5 3.7 Chloride 98 L 100 L Carbon Dioxide 29 27 Anion Gap 7 7 BUN 21 18 Creatinine 1.09 H 0.84 Est GFR ( Amer) 61.7 83.3 Est GFR (Non-Af Amer) 47.9 64.8 BUN/Creatinine Ratio 19.3 21.4 H Glucose 96 84 Calcium 9.0 8.9 Ur Random Creatinine 24.95 Ur Random Sodium 42 Urine Collection Time 24 Urine Total Volume 4750 Ur Creatinine 24 Hour 1185.12 Ur Sodium 24 Hour 199 Microbiology and Other Data: Microbiology 04/07/17 19:29 Nasal Screen MRSA (PCR)(YUE) - Final Nasal Mrsa Negative Assess/Plan/Problems-Billing Assessment: 81 year old female H severe chronic ischemic cardiomyopathy (EF 20-25%, severe MVR) who presented with SOB 2/2 acute CHF, Course c/b acute hyponatremia 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 - Patient Problems (1) CHF (congestive heart failure) Current Visit: Yes Status: Acute Code(s): I50.9 - HEART FAILURE, UNSPECIFIED SNOMED Code(s): 66241361 Comment: Acute on chronic systolic CHF. Torsemide 40 mg po daily started reduce to 20mg daily. Daily weights. Net negative 1.9L yesterday. (2) Hyponatremia Current Visit: Yes Status: Acute Code(s): E87.1 - HYPO-OSMOLALITY AND HYPONATREMIA SNOMED Code(s): 26556070 Comment: Last Na 134. 1500 ml fluid restriction. BMP daily for now. Cortisol and TSH wnl. (3) Hypothyroid Current Visit: Yes Status: Acute Code(s): E03.9 - HYPOTHYROIDISM, UNSPECIFIED SNOMED Code(s): 76654098 Comment: TSH wnl 04/05/17. Continue home dose levothyroxine. Status and Disposition: medicine step down 04/11, likely d/c 04/12 if Na stable Attending: Adan Nair
[2017-04-12] MEDS ORDERED: NS 0.9% 250 ML* 250 ML IV ONE (03:30)
[2017-04-12] MEDS: Heparin VIAL(*) 5000 UNITS/ML VIAL (FIVE THOUSAND) SUBCUT SCH (05:59)
[2017-04-12] MEDS: Levothyroxine TAB* 75 MCG TAB PO SCH (05:59)
[2017-04-12] MEDS ORDERED: Torsemide TAB* 20 MG PO SCH (09:00)
[2017-04-12] MEDS: Carvedilol TAB* 3.125 MG PO SCH (09:07)
[2017-04-12] MEDS: Acetaminophen TAB* 325 MG PO SCH (09:07)
[2017-04-12] MEDS: Aspirin EC Low Dose* 81 MG TAB.EC PO SCH (09:07)
[2017-04-12 10:36] LABS: BUN/Creatinine Ratio 22.7 (8-20); Calcium 9.8 mg/dL (8.6-10.3); EGFR African American 70.5 (>60); EGFR Non-African American 54.8 (>60); Potassium 3.8 mmol/L (3.5-5.0)
[2017-04-12 12:26] VITALS: BP 82/62
--- NOTE | 2017-04-13 09:36 | DS ---
DISCHARGE SUMMARY: DATE OF ADMISSION: 04/07/17 DATE OF DISCHARGE: 04/12/17 ADMITTING PROVIDER: Hitesh Matute MD ATTENDING PHYSICIANS: Hitesh Matute MD and Adan Nair MD CHIEF COMPLAINT: Shortness of breath, weight gain, and fall. 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 HISTORY OF PRESENT ILLNESS AND HOSPITAL COURSE: Ms. Yin is an 81-year-old female with a past medical history of cardiomyopathy with systolic ejection fraction of 30% to 35% in 2015, anxiety disorder, left breast cancer, hypothyroidism, paroxysmal SVT, mitral valve regurgitation, who initially presented on 04/05/17 with inability to sleep for 3 nights. She attested to paroxysmal nocturnal dyspnea and orthopnea. She was admitted for concern for exacerbation of her congestive heart failure and given IV diuretics. Echocardiogram was obtained which showed reduction in her ejection fraction to 20% to 25% with severe mitral valve regurgitation. The patient had been following with Dr. Alba, Cardiology and had failed attempts at starting CHF medications due to low blood pressure and sensation of fatigue. Of note the patient had never actually taken prescribed carvedilol for any significant length of time over 2 years and of note was also seemingly trialed on lisinopril and Aldactone. Initial sodium at that time was 130. The patient was discharged the next day on April 06 and had urine output of 1925 after the 40 of IV Lasix in the emergency room and felt much better. Coreg was added in patient. As noted, she presented again with shortness of breath at both rest and walking and fell in her bedroom. The patient was started on torsemide 40 mg daily and had good diuresis, although she drank her way through it and was actually net positive on 04/09/17, positive 1.1 liters. Course was complicated by severe drops in sodium and labile sodium measurements. Discharge sodium on April 05 was 132 and readmission 3 p.m. April 07 was 117. The patient stabilized with 3% saline solution in ICU and improved to 127 on April 08 5 a.m. and was transferred to the floor, but by that afternoon at 1 p.m. it had dropped to 116. She was then transferred back to the ICU and started on demeclocycline 150 mg p.o. t.i.d., which she received on Sunday through the morning of Sunday04/10/17. This was stopped as the patient's sodium started to improve too rapidly. With the continuation of fluid restrictions to 1.5 liters in the ICU and then on the floor, pt Na continued to slowly rise and upon discharge remained stable at 134 for 24 hours. The patient's shortness of breath improved and she had loss of weight, discharged weight was 65.09 kg compared to 69.8 kg on April 08. The patient was able to walk and ambulate without difficulty and was discharged home with anticipated close followup with Dr. Marks and Dr. Alba. The patient's blood pressure was intermittently low in the 80s when she was being diuresed with the torsemide 40 mg with the addition of Coreg 3.125 mg b.i.d. It was decided to hold the Coreg upon discharge and drop the torsemide to 20 mg daily by the day of hospital discharge and beyond until she can follow up with Dr. Alba of Cardiology. DISCHARGE MEDICATIONS: Include: 1. Torsemide 20 mg daily. 2. Levothyroxine 75 mcg daily. 3. Aspirin 81 mg daily. 4. Citalopram 20 mg daily (of note this was held during admission given the concern for SIADH). DIET: Cardiac diet, low salt, fluid restriction 1.5 Liters. DISPOSITION: Home. TIME SPENT ON DISCHARGE: 35 minutes. [id number]/CPS #: [id number] MTDD
== END 2017-04-12 13:30 | disposition home or self-care (01) | DRG 643 ==
LOC: ED 14:25 → ICU 18:02 → MEDTELE 04-08 10:56 → ICU 04-08 16:37 → MED 04-11 11:50
PROVIDERS: ADMIT Internal Medicine; ATTEND Internal Medicine
DX: E22.2 Syndrome of inappropriate secretion of antidiuretic hormone (principal); I50.23 Acute on chronic systolic (congestive) heart failure; I95.9 Hypotension, unspecified; I25.5 Ischemic cardiomyopathy; I34.0 Nonrheumatic mitral (valve) insufficiency; G89.29 Other chronic pain; M54.9 Dorsalgia, unspecified; M54.2 Cervicalgia; E03.9 Hypothyroidism, unspecified; F41.9 Anxiety disorder, unspecified; H26.9 Unspecified cataract; Z96.653 Presence of artificial knee joint, bilateral; Z90.12 Acquired absence of left breast and nipple; Z88.5 Allergy status to narcotic agent; Z85.828 Personal history of other malignant neoplasm of skin; Z88.2 Allergy status to sulfonamides; Z88.0 Allergy status to penicillin; Z80.8 Family history of malignant neoplasm of other organs or systems; Z85.3 Personal history of malignant neoplasm of breast; Z79.82 Long term (current) use of aspirin
CPT/HCPCS: 36415; 71020; 72040; 80048; 80053; 80061; 81003; 81015; 82533; 82570; 83605; 83735; 83880; 83930; 83935; 84300; 84443; 84484; 85025; 85610; 86140; 87086; 87641; 93005; 93306; A9270-GY; C8929; J1644; J1885; J1940; J3475